=== PATIENT | male | born 1980 | race Caucasian/White ===

== ENCOUNTER 2020-09-02 21:04 | Emergency (ER) | payer OTHER, SELFPAY ==
[2020-09-02] VITALS (24 sets, daily range): BP systolic 181–206; BP diastolic 119–144; PULSE 84–94; RESP 18; TEMP 36.8; O2SAT 91–99; BMI 37.3
--- NOTE | 2020-09-02 21:23 | US_ITS ---
WS: [id number] SCROTAL ULTRASOUND EXAMINATION CLINICAL INFORMATION: Pain COMPARISON: None. FINDINGS: TESTES Normal in size and echotexture, without focal lesion. Color Doppler: Normal color Doppler flow pattern. Right testes size: 3.8 cm x 2.9 cm x 2.7 cm. Left testes size: 5.0 cm x cm x cm. EPIDIDYMIDES Normal in size and echotexture, without focal lesion. Color Doppler: Normal color Doppler flow pattern. Right epididymis size: 1.3 cm x cm x cm. Left epididymitis size: 1.3 cm x cm x cm. HYDROCELE None. VARICOCELE Large bilateral varicoceles. Right varicocele measures 3.6 x 1.6 cm. Left varicocele measuring 3.1 x 1.0 CM. OTHER FINDINGS None. US/US scrotum [id number] IMPRESSION: 1. Large bilateral varicoceles. 2. Testicles are normal in appearance with normal vascularity.
--- NOTE | 2020-09-02 21:28 | ED_ITS ---
HPI - Abdominal Pain General: Chief Complaint: Abdominal Pain Stated Complaint: ABD PAIN, NAUSEA Time Seen by Provider: 09/02/20 21:16 Source: patient Mode of arrival: ambulatory Limitations: no limitations History of Present Illness: HPI narrative: Mr. Sanon is a very nice 40-year-old male who comes in complaining of abdominal pain. He states the symptoms have been going on for 2 days. He states he had similar pain in the past although not quite like he is having today. Previously when he had the pain it was caused by a ruptured diverticulum. Patient still has a colostomy bag in place. Patient denies any vomiting but has been nauseated. He has noticed decreased ostomy output but he states this is because he is not eating or drinking anything. He denies fevers or chills. He denies any urinary symptoms such as frequency, urgency or dysuria. Patient does state he has testicles both ache and this is the radiation of the pain from his abdomen. He denies any exacerbating or alleviating factors. Denies any blood in his ostomy. Associated Symptoms: Reports diarrhea; Denies chills, coffee ground emesis, constipation, GI cramping, dysuria, fever(s), heartburn, hematochezia, hematuria, hematemesis, melena, nausea, syncope and vomiting Review of Systems Const: Denies: fever(s), chills, body aches, fatigue, malaise or diaphoresis Eyes: Denies: change in vision, blurry vision, photophobia, eye discomfort, eye discharge, eye redness or yellow eyes ENMT: Denies: throat pain, odynophagia, hoarseness, swelling of lips/tongue, ear or mastoid pain, ear discharge, change in hearing or nasal discharge Card: Denies: chest pain, palpitations, irregular heart rhythm, edema, lightheadedness, syncope, pre-syncope, dyspnea on exertion or orthopnea Resp: Denies: dyspnea, productive cough, non-productive cough, wheezing, hemoptysis or chest congestion GI: Reports: abdominal pain and diarrhea; Denies: nausea, vomiting, hematemesis, coffee ground emesis, heartburn, constipation, GI cramping, hematochezia or melena : Denies: flank pain, dysuria, urinary frequency, urinary urgency or hematuria Musc: Denies: neck pain, back pain, extremity pain, extremity swelling, joint pain, joint swelling, joint redness, joint warmth or joint stiffness Skin/Breast: Denies: rash, pruritus, erythema, skin pain or skin tenderness Neuro: Denies: headache(s), numbness in extremities, weakness in extremities, sensory changes, lack of coordination, difficulty walking, dizziness, vertigo, confusion, Slurred speech present or seizure-like activity Flo/Lymph: Denies: easy bruising, easy bleeding, petechiae, purpura or enlarged lymph nodes All/Imm: Denies: urticaria, throat swelling, tongue swelling, facial swelling or acute wheezing PFSH ED PFSH: Medical History (Updated 09/03/20 @ 00:27 by Lidia Cody) Colostomy hernia Colostomy in place Hypertension Social History (Updated 11/11/19 @ 14:54 by Fabio Phillips LPN) Smoking and tobacco status: never smoked Alcohol intake: never Physical Exam Const: COMMON NORMALS: no acute distress, patient oriented x3, no limitations and alert GENERAL APPEARANCE: cooperative HENMT: COMMON NORMALS: normocephalic, atraumatic, external ears normal, EAC's normal and Normal external nose present HEAD & SCALP: normal to inspection, normocephalic and atraumatic FACE & SINUS: normal facial exam and face symmetric NOSE: Normal external nose present and Normal nares present EXTERNAL EAR: Yes external ears normal EXTERNAL AUDITORY CANAL: EAC's normal MOUTH: Normal oral and palatal mucosa present, lip normal and tongue normal Eye: COMMON NORMALS: Equal, round and reactive pupils present and conjunctivae normal GENERAL EYE: appearance normal, both eyes and all related structures ALIGNMENT: Yes alignment normal PERIORBITAL: periorbital findings normal EYELID: eyelids normal CONJUNCTIVA: Yes conjunctivae normal SCLERA: sclerae normal PUPIL: Yes Equal, round and reactive pupils present Neck/C-Spine: COMMON NORMALS: full ROM, no lymphadenopathy, supple, no men ingeal signs and no JVD GENERAL: Yes normal visual inspection and Yes trachea midline Chest: COMMONS NORMALS: normal inspection of the chest and normal palpation of entire chest wall Resp: COMMON NORMALS: normal respiratory effort, No retractions, No use of accessory muscles and clear to auscultation bilaterally EFFORT & INSPECTION: Yes able to speak in complete sentences and Yes symmetric chest movement AUSCULTATION: clear to auscultation bilaterally, no crackles, no rales, no rhonchi and no wheezes Cardio: COMMON NORMALS: no JVD, regular rate, regular rhythm, S1 normal heart sound present and S2 normal heart sound present RATE: regular rate RHYTHM: regular rhythm HEART SOUNDS: S1 normal heart sound present, S2 normal heart sound present, no click, no gallops, no murmurs and no rubs GI: COMMON NORMALS: Soft to palpation and No hepatosplenomegaly present PALPATION: Yes Soft to palpation, Yes Tenderness to palpation present (GI) (Moderate diffusely.), No Guarding due to palpation present (GI), No Rigid due to palpation, Yes No hepatosplenomegaly present, Yes Hernia present (Large throughout the abdomen and surrounding colostomy site), No Palpable mass present and No Pulsatile mass present : COMMON NORMALS: Yes no CVA tenderness BLADDER/KIDNEY EXAM: Yes no CVA tenderness Back/Pelvis: COMMON NORMALS: no CVA tenderness, thoracic and lumbar spine normal to inspection, no thoracic nor lumbar tenderness and thoraco-lumbar ROM normal Extremity: COMMON NORMALS: normal to inspection, full ROM, capillary refill normal, no joint enlargement, no clubbing, cyanosis or edema and no calf tenderness Neuro: COMMON NORMALS: patient oriented x3, CN's II-XII intact bilaterally, moves all extremities, no focal motor deficits and no sensory deficits noted SENSORIUM/ORIENTATION: Yes alert MENINGEAL SIGNS: Yes no meningeal signs SPEECH: speech normal Psych: COMMON NORMALS: mental status grossly normal, Normal thought process present, cooperative, normal affect, speech normal and activity/motor behavior normal SPEECH: Yes normal speech THOUGHT PROCESS: Normal thought process present Skin: COMMON NORMALS: no rashes or lesions noted, turgor normal, no jaundice, no petechiae and no mottling GENERAL SKIN EXAM: no rashes or lesions noted and turgor normal Course Vital Signs: Vital signs: Vital Signs Temperature 98.2 F 09/02/20 21:09 Pulse Rate 63 09/03/20 00:37 Respiratory Rate 18 09/03/20 00:37 Blood Pressure 158/92 09/03/20 00:37 Pulse Oximetry 94 09/03/20 00:37 MDM - Abdominal Pain MDM Narrative: Medical decision making narrative: Mr. Tang is a very nice 40-year-old male who comes in with a 2-day history of intermittent abdominal pain. His abdominal pain is more around his umbilicus and his ostomy site. CT scan though shows no evidence of acute diverticulitis, bowel obstruction or any other acute inflammatory or obstructive pathology. Patient states he has had an appendectomy. The patient has not been vomiting and he is pain is improved here. On exam his pain is not out of proportion to exam although he has mild diffuse pain. CT scan showed a stone in the neck of the gallbladder but his liver enzymes are normal and he has no focal tenderness in the right upper quadrant. Patient states his ostomy has been putting out as he would expect for his decreased fluid intake. At this time I see no acute surgical emergency and on exam there is no sign of peritonitis. I replaced the patient's potassium by mouth and he was pain-free when he left here. He was hydrated here as well and was no longer nauseated. I gave him a prescription of Bentyl for his cramping abdominal pain and Zofran for nausea at home. I did have a lengthy discussion with him about the possibility of this being something early in regards to his abdomen and then if his pain recurred or even if his dull pain recurred but was not severe if it did not completely subside within the next 8 to 12 hours he would need to return here for recheck. He states he understood this this and he states that he is tired of dealing with the pain so if it does return and is more severe he will return immediately or if it comes back and is mild he will still come back for recheck in the time that we discussed. This time I see no acute emergency but again the patient understands if he worsens at all he will need to return. He had no questions or concerns and he agreed to this treatment and follow-up plan. Differential Diagnosis: Differential diagnosis abdominal pain: Likely abdominal pain, acute appendicitis, calculus of kidney, constipation, diverticulitis, gastroenteritis, pancreatitis and small bowel obstruction Medical Records: Attestation: I reviewed the patient's medical records. Lab Data: Attestation: I reviewed the patient's lab results. Labs: Lab Results 09/02/20 09/02/20 09/02/20 Range/Units 21:29 21:29 21:29 WBC 9.9 (4.0-10.0) 10^3/ uL RBC 5.78 H (4.1-5.3) 10^6/u L Hgb 16.8 H (11.7-16.6) g/dL Hct 50.6 (42.0-52.0) % MCV 87.5 (80-94) fL MCH 29.1 (28.0-34.0) pg MCHC 33.2 (30.0-36.0) g/dL RDW 12.9 (12.1-15.1) % Plt Count 264 (130-400) 10^3/c mm MPV 10.7 H (7.4-10.4) fL Neut % (Auto) 61.1 % Lymph % (Auto) 28.9 % [place] % (Auto) 8.0 % Eos % (Auto) 1.3 % Baso % (Auto) 0.5 % Neut # (Auto) 6.07 (1.8-7.7) 10^3/u L Lymph # (Auto) 2.9 (0.8-4.8) 10^3/u L [place] # (Auto) 0.8 (0.2-0.9) 10^3/u L Eos # (Auto) 0.1 (0.0-0.8) 10^3/u L Baso # (Auto) 0.1 (0.0-0.1) 10^3/u L Nucleated RBC % (a uto) 0 % Nucleated RBCs # 0.0 /100WBC Sodium 140 (136-145) mmol/L Potassium 3.3 L (3.5-5.1) mmol/L Chloride 102 (98-107) mmol/L Carbon Dioxide 27 (22-29) mmol/L Anion Gap 14.3 (5-19) BUN 17 (6-20) mg/dL Creatinine 1.0 (0.7-1.2) mg/dL GFR Calculation 81.9 L (90-130) mL/min Glucose 142 H (65-115) mg/dL Calculated Osmolal ity 294 (285-295) mOsm/k g Lactic Acid 1.4 (0.5-2.2) mmol/L Calcium 9.2 (8.5-10.5) mg/dL Total Bilirubin 0.5 (0.15-1.2) mg/dL AST 22 (0-40) U/L ALT 14 (0-41) U/L Alkaline Phosphata se 77 (40-130) IU/L Total Protein 7.6 (6.6-8.7) g/dL Albumin 4.1 (3.5-5.2) g/dL Globulin 3.5 (1.3-4.6) g/dL Lipase 32 (13-60) U/L Urine Color (Yellow) Urine Appearance (CLEAR) Urine pH (5-7) Ur Specific Gravit y (1.005-1.030) Urine Protein (Negative) Urine Glucose (UA) (Normal) Urine Ketones (Negative) Urine Blood (Negative) Urine Nitrate (Negative) Urine Bilirubin (Negative) Urine Urobilinogen (Negative) mg/dL Ur Leukocyte Mayte ase (Negative) 09/02/20 Range/Units 22:46 WBC (4.0-10.0) 10^3/ uL RBC (4.1-5.3) 10^6/u L Hgb (11.7-16.6) g/dL Hct (42.0-52.0) % MCV (80-94) fL MCH (28.0-34.0) pg MCHC (30.0-36.0) g/dL RDW (12.1-15.1) % Plt Count (130-400) 10^3/c mm MPV (7.4-10.4) fL Neut % (Auto) % Lymph % (Auto) % Columbia % (Auto) % Eos % (Auto) % Baso % (Auto) % Neut # (Auto) (1.8-7.7) 10^3/u L Lymph # (Auto) (0.8-4.8) 10^3/u L [place] # (Auto) (0.2-0.9) 10^3/u L Eos # (Auto) (0.0-0.8) 10^3/u L Baso # (Auto) (0.0-0.1) 10^3/u L Nucleated RBC % (a uto) % Nucleated RBCs # /100WBC Sodium (136-145) mmol/L Potassium (3.5-5.1) mmol/L Chloride (98-107) mmol/L Carbon Dioxide (22-29) mmol/L Anion Gap (5-19) BUN (6-20) mg/dL Creatinine (0.7-1.2) mg/dL GFR Calculation (90-130) mL/min Glucose (65-115) mg/dL Calculated Osmolal ity (285-295) mOsm/k g Lactic Acid (0.5-2.2) mmol/L Calcium (8.5-10.5) mg/dL Total Bilirubin (0.15-1.2) mg/dL AST (0-40) U/L ALT (0-41) U/L Alkaline Phosphata se (40-130) IU/L Total Protein (6.6-8.7) g/dL Albumin (3.5-5.2) g/dL Globulin (1.3-4.6) g/dL Lipase (13-60) U/L Urine Color Yellow (Yellow) Urine Appearance Clear (CLEAR) Urine pH 5.0 (5-7) Ur Specific Gravit y 1.020 (1.005-1.030) Urine Protein Neg (Negative) Urine Glucose (UA) Norm (Normal) Urine Ketones Negative (Negative) Urine Blood Neg (Negative) Urine Nitrate Negative (Negative) Urine Bilirubin Neg (Negative) Urine Urobilinogen Norm (Negative) mg/dL Ur Leukocyte Mayte ase Negative (Negative) Imaging Data ^: US: My impression: Ultrasound scrotum and contents, tech interpretation -bilateral varicoceles present. No other acute findings. CT Abd/Pel: Radiologist's impression: [address] [address] [address] Scan Report Signed Patient: Nav Sanon Unit #: [id number] : 1980 Age/Sex: 40 / M ADM Date: 09/02/20 Loc: ER Room/Bed: Attending Dr: Ordering Provider/Ordering MD: Lidia Cody DO Date of Service: 09/02/20 Procedure(s): CT abdomen pelvis w con* [id number] Accession Number(s): [id number] Report Number: [id number] PROCEDURE INFORMATION: Exam: CT Abdomen And Pelvis With Contrast Exam date and time: 09/02/2020 10:08 PM Age: 40 years old Clinical indication: Abdominal pain; Generalized; Prior surgery; Surgery type: Colostomy TECHNIQUE: Imaging protocol: Computed tomography of the abdomen and pelvis with intravenous contrast. Radiation optimization: All CT scans at this facility use at least one of these dose optimization techniques: automated exposure control; mA and/or kV adjustment per patient size (includes targeted exams where dose is matched to clinical indication); or iterative reconstruction. Contrast material: OMNI 300; Contrast volume: 95 ml; Contrast route: INTRAVENOUS (IV); COMPARISON: CT abdomen pelvis w con* [id number] 02/08/2015 11:03 AM RADIATION DOSE METRICS: Total DLP (mGy-cm): 1493.06 FINDINGS: Liver: Unremarkable. Gallbladder and bile ducts: Small gallstone in the gallbladder neck. Pancreas: Unremarkable. Spleen: Unremarkable. Adrenal glands: Unremarkable. Kidneys and ureters: There is a 0.8 cm hypodensity in the right kidney lower pole on series 2, image 43, statistically likely to represent a cyst. There is a 1.5 cm mass in the right kidney lower pole on series 2, image 50. Density is 36 Hounsfield units. Etiology is indeterminate. The left kidney is unremarkable. Stomach and bowel: No bowel obstruction identified. No diverticulitis identified. Left lower quadrant colostomy noted. Appendix: The appendix is not definitively identified as a separate structure. Intraperitoneal space: No free intraperitoneal air or fluid identified. Massive ventral abdominal hernia, which contains fat, a long segment of the small bowel, and a long segment of the colon. Vasculature: No abdominal aortic aneurysm. Lymph nodes: Unremarkable. Urinary bladder: Unremarkable as visualized. Reproductive: Unremarkable as visualized. Bones/joints: Minimal degenerative changes of the lower thoracic spine and the lumbar spine. Soft tissues: Unremarkable. CT/CT abdomen pelvis w con* [id number] IMPRESSION: 1. Massive ventral abdominal hernia, which contains fat, a long segment of the small bowel, and a long segment of the colon. 2. Small gallstone in the gallbladder neck. 3. There is a 1.5 cm mass in the right kidney lower pole. Density is 36 Hounsfield units. Etiology is indeterminate. This finding is new since the prior study. Consider renal mass protocol CT on a nonemergent basis for further evaluation. COMMENTS: Consistent with the [employer]'s Incidental Findings Committee white paper (J Am Barb Radiol 2018): Any incidental renal lesion less than 1 cm or classified as too small to characterize, or any incidental cystic renal lesion characterized as simple-appearing, is likely benign. No follow-up imaging is recommended for these lesions per consensus recommendations based on imaging criteria. Radiation Dose CTDIVOL = (mGy): DLP = 1493.06 (mGy-cm) Dictated By: Modesto Watkins MD Signed By: Modesto Watkins MD Signed Date/Time: 09/03/20 0008 DD/ 0005 Discharge Plan Discharge Patient Disposition: Home Clinical Impression: Abdominal pain Qualifiers: Abdominal location: generalized Qualified Code(s): R10.84 - Generalized abdominal pain Condition: Stable Prescriptions: New Zofran 4 mg tablet 4 mg PO Q6H PRN (Reason: nausea and vomiting) Qty: 20 RF: 0 dicyclomine 20 mg tablet 20 mg PO QID 5 Days Qty: 20 RF: 0 No Action Imodium A-D 2 mg Tablet 2 mg PO BID@ RF: 0 Discharge Orders: Discharge ED (Routine); Ordered 09/03/20 Ordered By: Lidia Cody Referrals: Julius Allen MD [Physician] - 1-3 days Ze Neumann MD [Primary Care Provider] - 1-3 days Discharge Diet: Advance as tolerated and Clear Liquid Discharge Activity: Increase activity as tolerated Patient Instructions: Clear Liquid Diet (ED), Acute Abdominal Pain (ED), Abdominal Pain (ED) Activity Restrictions/Additional Instructions: Please return to the ER immediately for any of the signs or symptoms listed on your discharge instruction sheets, worsening/changing of your symptoms, you are not getting better as quickly as expected, or for ANY other cause or concerns. Take the medicines have given you for the cramping abdominal pain and nausea as needed. Return to the ER immediately for fever, vomiting, you stop having output through your ostomy, return of your abdominal pain, your abdominal pain is not completely gone in the next 8 to 12 hours, or for any other cause for concern. Be certain to follow-up with a clear liquid diet and advance it as we discussed only as your pain completely subsides. You have been offered further evaluation including observation in the hospital by a surgeon but have declined. Your abdominal pain could be a sign of something early even severe and life- threatening so if your symptoms return or change in any way please return here to the ER immediately for recheck. Coding Level of Care Code ED Knowledge Management Consultant for Chg Fwd Exam Comprehensive
[2020-09-02] MEDS: ondansetron 2 mg/ML SDV 2 mL 4 MG IVP (21:36)
[2020-09-02 21:37] LABS: Basophils # 0.1 10^3/uL (0.0-0.1); Basophils % 0.5 %; Eosinophils # 0.1 10^3/uL (0.0-0.8); Eosinophils % 1.3 %; Hematocrit 50.6 % (42.0-52.0); Hemoglobin 16.8 g/dL (11.7-16.6); Lymphocytes # 2.9 10^3/uL (0.8-4.8); Lymphocytes % 28.9 %; Mean Corpuscular HGB Conc 33.2 g/dL (30.0-36.0); Mean Corpuscular Hemoglobin 29.1 pg (28.0-34.0); Mean Corpuscular Volume 87.5 fL (80-94); Mean Platelet Volume 10.7 fL (7.4-10.4); Monocytes # 0.8 10^3/uL (0.2-0.9); Neutrophils # 6.07 10^3/uL (1.8-7.7); Neutrophils % 61.1 %; Nucleated Red Blood Cells % 0 %; Platelet Count 264 10^3/cmm (130-400); Red Blood Count 5.78 10^6/uL (4.1-5.3); Red Cell Distribution Width 12.9 % (12.1-15.1); White Blood Count 9.9 10^3/uL (4.0-10.0)
[2020-09-02] MEDS: HYDROmorphone 1 mg/mL INJ 1 mL IVP (21:39)
[2020-09-02 21:54] LABS: Alanine Aminotransferase 14 U/L (0-41); Albumin Level 4.1 g/dL (3.5-5.2); Alkaline Phosphatase 77 IU/L (40-130); Anion Gap 14.3 (5-19); Aspartate Amino Transferase 22 U/L (0-40); Blood Urea Nitrogen 17 mg/dL (6-20); Calcium 9.2 mg/dL (8.5-10.5); Carbon Dioxide 27 mmol/L (22-29); Chloride 102 mmol/L (98-107); Globulin 3.5 g/dL (1.3-4.6); Glomerular Filtration Rate 81.9 mL/min (90-130); Glucose 142 mg/dL (65-115); Lipase 32 U/L (13-60); Osmolality Calculated 294 mOsm/kg (285-295); Potassium 3.3 mmol/L (3.5-5.1); Sodium 140 mmol/L (136-145); Total Bilirubin 0.5 mg/dL (0.15-1.2); Total Protein 7.6 g/dL (6.6-8.7)
[2020-09-02 21:55] LABS: Lactic Sepsis W/Reflex 1.4 mmol/L (0.5-2.2)
--- NOTE | 2020-09-02 21:56 | CTR_ITS ---
PROCEDURE INFORMATION: Exam: CT Abdomen And Pelvis With Contrast Exam date and time: 09/02/2020 10:08 PM Age: 40 years old Clinical indication: Abdominal pain; Generalized; Prior surgery; Surgery type: Colostomy TECHNIQUE: Imaging protocol: Computed tomography of the abdomen and pelvis with intravenous contrast. Radiation optimization: All CT scans at this facility use at least one of these dose optimization techniques: automated exposure control; mA and/or kV adjustment per patient size (includes targeted exams where dose is matched to clinical indication); or iterative reconstruction. Contrast material: OMNI 300; Contrast volume: 95 ml; Contrast route: INTRAVENOUS (IV); COMPARISON: CT abdomen pelvis w con* [id number] 02/08/2015 11:03 AM RADIATION DOSE METRICS: Total DLP (mGy-cm): 1493.06 FINDINGS: Liver: Unremarkable. Gallbladder and bile ducts: Small gallstone in the gallbladder neck. Pancreas: Unremarkable. Spleen: Unremarkable. Adrenal glands: Unremarkable. Kidneys and ureters: There is a 0.8 cm hypodensity in the right kidney lower pole on series 2, image 43, statistically likely to represent a cyst. There is a 1.5 cm mass in the right kidney lower pole on series 2, image 50. Density is 36 Hounsfield units. Etiology is indeterminate. The left kidney is unremarkable. Stomach and bowel: No bowel obstruction identified. No diverticulitis identified. Left lower quadrant colostomy noted. Appendix: The appendix is not definitively identified as a separate structure. Intraperitoneal space: No free intraperitoneal air or fluid identified. Massive ventral abdominal hernia, which contains fat, a long segment of the small bowel, and a long segment of the colon. Vasculature: No abdominal aortic aneurysm. Lymph nodes: Unremarkable. Urinary bladder: Unremarkable as visualized. Reproductive: Unremarkable as visualized. Bones/joints: Minimal degenerative changes of the lower thoracic spine and the lumbar spine. Soft tissues: Unremarkable. CT/CT abdomen pelvis w con* [id number] IMPRESSION: 1. Massive ventral abdominal hernia, which contains fat, a long segment of the small bowel, and a long segment of the colon. 2. Small gallstone in the gallbladder neck. 3. There is a 1.5 cm mass in the right kidney lower pole. Density is 36 Hounsfield units. Etiology is indeterminate. This finding is new since the prior study. Consider renal mass protocol CT on a nonemergent basis for further evaluation. COMMENTS: Consistent with the [employer]'s Incidental Findings Committee white paper (J Am Barb Radiol 2018): Any incidental renal lesion less than 1 cm or classified as too small to characterize, or any incidental cystic renal lesion characterized as simple-appearing, is likely benign. No follow-up imaging is recommended for these lesions per consensus recommendations based on imaging criteria. Radiation Dose CTDIVOL = (mGy): DLP = 1493.06 (mGy-cm)
[2020-09-02 22:51] LABS: Add Urine Microscopic? NO
[2020-09-02 22:55] LABS: Urine Color Yellow (Yellow)
[2020-09-02 22:56] LABS: Bilirubin Urine Neg (Negative); Blood Urine Neg (Negative); Glucose Urine UA Norm (Normal); Ketones Urine Negative (Negative); Leukocyte Esterase Urine Negative (Negative); Nitrate Urine Negative (Negative); Protein Urine Neg (Negative); Urine Appearance Clear (CLEAR); Urobilinogen Urine Norm (Negative)
[2020-09-02] MEDS: iohexol 300 mg/mL 100 mL Btl IV (23:39)
--- NOTE | 2020-09-02 23:48 | PC.NURSE ---
Pt return from CT
[2020-09-03] VITALS (7 sets, daily range): BP systolic 158–181; BP diastolic 92–119; PULSE 63–70; RESP 18–20; O2SAT 93–94
[2020-09-03] MEDS: HYDROmorphone 1 mg/mL INJ 1 mL IVP (00:33)
[2020-09-03] MEDS: potassium chloride oral liq 20 mEq/15 mL UDC 40 MEQ PO (00:36)
--- NOTE | 2020-09-03 09:30 | DCPLANNER ---
[employer] manager had message to schedule a follow up appointment for patient with ortho. [employer] cryptologic manager called the ortho clinic, spoke with Katarzyna, gave clinic patients information. [employer] cryptologic manager was told that patients information would be printed and reviewed. Clinic will call patient with appointment information.
--- NOTE | 2020-09-10 10:48 | DCPLANNER ---
Patient has a follow up appointment scheduled for August at 10:[address] Frederick. Clinic will call patient with appointment information.
--- NOTE | 2020-09-15 11:00 | DCPLANNER ---
Patient had a follow up appointment scheduled for 09.16.[address] Louis office - patient cancelled appointment.
== END 2020-09-03 00:47 | disposition home or self-care (01) ==
PROVIDERS: Emergency Provider Emergency Medicine; PCP Family Medicine
DX: R10.84 Generalized abdominal pain (principal); I10 Essential (primary) hypertension; Z93.3 Colostomy status
CPT/HCPCS: 12345; 74177; 76870; 80053; 81003; 83605; 83690; 85025; 96374; 96375; 96376; 99283; J1170; J2405; Q9967

== ENCOUNTER → 2020-09-19 10:53 | Outpatient (BNVA) | payer OTHER, SELFPAY | PROVIDERS: PCP Family Medicine; Visit Provider Nurse Practitioner | DX: M19.072 Primary osteoarthritis, left ankle and foot (principal); M79.672 Pain in left foot | CPT/HCPCS: 73630 ==

== ENCOUNTER 2021-06-29 11:28 | Outpatient (CLI) | payer OTHER, SELFPAY | END 2021-06-29 11:29 | disposition home or self-care (01) | PROVIDERS: PCP Family Medicine; Visit Provider Family Medicine | DX: K92.1 Melena (principal) | CPT/HCPCS: 83993; 87493; 87506 ==

== ENCOUNTER 2022-03-17 06:35 | Observation (INO) | payer OTHER, SELFPAY ==
[2022-03-17 07:11] VITALS: BP 199/144; PULSE 73; TEMP 36.6; O2SAT 98; BMI 38.7
--- NOTE | 2022-03-17 08:06 | CT_ITS ---
WS: [id number] CT ABDOMEN AND PELVIS WITH CONTRAST HISTORY: abd pain TECHNIQUE: Imaging performed of the abdomen and pelvis with IV contrast. Single phase imaging of the abdomen. Coronal and sagittal reformats are submitted. All CT scans at [facility] use at ke st one of these dose optimization techniques: automated exposure control; mA and/or kV adjustment per patient size (includes targeted exams where dose is matched to clinical indication); or iterative re construction. IV CONTRAST: Omnipaque 350; 75 mL IV. Oral contrast: No DLP: 1930.05 mGy.cm COMPARISON: 09/02/2020 Lower thorax: Lung bases are clear. Heart is normal size. No hiatal hernia. Liver/biliary system: Normal size with no intrahepatic dilatation. Gallbladder: Normally distended gallbladder with cholelithiasis. Pancreas: Normal size pancreas and pancreatic duct. No adjacent inflammation. Spleen: Normal size spleen. No mass or infarct. Adrenal glands: Normal. Right kidney: Normal size kidney. There is a small enhancing mass from the lower pole of the RIGHT ki dney now measuring 13 mm as compared to 8 mm on the prior study. On the prior study this was thought to be a renal cyst. On today's examination this is not a simple cyst. This will need follow-up to exc lude neoplasm. Left kidney: Normal. Aorta: Normal. Lymphadenopathy: No enlarged lymph nodes. Free fluid: None. GI tract: Normally distended stomach. RIGHT lower quadrant colostomy. There is a very large parastoma l hernia. Ventral abdominal wall hernia contains small bowel and colon. Orifice of the hernia is grea ter than 11 cm. Very similar appearance to the prior examination. No obstruction is evident within th e hernia sac. Abdominal wall: Large ventral abdominal wall parastomal hernia. Pelvis: No free fluid or adenopathy. Urinary bladder is well distended. Bones: Scoliosis. No lytic lesions. CT/CT abdomen pelvis w con* [id number] IMPRESSION: 1. Status post RIGHT lower quadrant colostomy with a large parastomal hernia. Large parastomal hernia has been previously described and contains both small b owel and colon. There is no obstructive pattern. 2. No ascites or adenopathy. 3. Cholelithiasis without acute cholecystitis.
--- NOTE | 2022-03-17 08:06 | W.ED.ABDPA2 ---
HPI - Abdominal Pain General: Chief Complaint: Headache Stated Complaint: Head Pain / Stomach pain Time Seen by Provider: 03/17/22 07:02 Source: patient Mode of arrival: ambulatory Limitations: no limitations History of Present Illness: 41-year-old male who presents emergency room with headache and abdominal pain for the last 5 days. Patient reports previously having had a perforation of his bowel resulting in a colostomy otherwise not sure of the exact cause of the bowel perforation drip. He has had copious diarrhea through his colostomy for the last 5 days with intermittent abdominal cramping associated with it. He denies any hematochezia or melanic stools. He gets very nauseous but has not had any vomiting. He also has had a severe headache although does not correlate with episodes of diarrhea. MD elicited complaint: abdominal pain and other (Persistent diarrhea) Onset (ago): day(s) (5) Location: [facility] Severity: moderate Quality: cramping Radiation: none Migration to: no migration Exacerbating factors: nothing Relieving factors: nothing Associated Symptoms: Reports bloating, change in bowel habits, change in stool character, GI cramping, diarrhea, nausea and poor appetite; Denies anorexia, belching, chills, coffee ground emesis, constipation, dyspepsia, dysuria, excessive flatus, fever(s), heartburn, hematochezia, hematuria, hematemesis, fecal incontinence, loose stools, melena, syncope and vomiting Review of Systems Const: Reports: fatigue and malaise; Denies: fever(s) or chills Eyes: Reports: change in vision and blurry vision ENMT: Denies: throat pain, ear or mastoid pain, nasal discharge or nasal congestion Card: Denies: chest pain, palpitations, irregular heart rhythm, edema, swelling of feet/ankles or syncope Resp: Denies: dyspnea, productive cough or non-productive cough GI: Reports: nausea, diarrhea, bloating, GI cramping, change in bowel habits and change in stool character; Denies: vomiting, hematemesis, coffee ground emesis, heartburn, constipation, belching, excessive flatus, fecal incontinence, hematochezia or melena : Denies: flank pain, difficulty urinating, dysuria, urinary frequency, urinary urgency or hematuria Skin/Breast: Denies: rash or pruritus PFSH ED PFSH: Medical History Colostomy hernia Colostomy in place Hypertension Social History Smoking and tobacco status: never smoked Second hand smoke exposure: No Alcohol intake: never Desire information about alcohol rehabilitation?: No Desire information about substance/drug rehabilitation?: No Physical Exam Const: GENERAL APPEARANCE: cooperative and comfortable ORIENTATION/CONSCIOUSNESS: Yes awake, Yes oriented to person, Yes oriented to place and Yes oriented to time HENMT: COMMON NORMALS: normocephalic and atraumatic HEAD & SCALP: normocephalic and atraumatic Neck/C-Spine: COMMON NORMALS: no JVD Resp: COMMON NORMALS: normal respiratory effort, No retractions, No use of accessory muscles and clear to auscultation bilaterally AUSCULTATION: clear to auscultation bilaterally Cardio: COMMON NORMALS: no JVD, regular rate, regular rhythm and No murmurs present (Cardio) RATE: regular rate RHYTHM: regular rhythm GI: COMMON NORMALS: No hepatosplenomegaly present AUSCULTATION: Yes normoactive bowel sounds PALPATION: Yes Tenderness to palpation present (GI) Details: LLQ, No Guarding due to palpation present (GI) and Yes No hepatosplenomegaly present OTHER: Mild discomfort left lower quadrant hypoactive but present bowel sounds. There is some bulging and appears to be a herniation through the ostomy site in the left lower quadrant. It is rather diffuse on exam. It is not tense, no peritoneal signs. Extremity: COMMON NORMALS: normal to inspection, capillary refill normal, no clubbing, cyanosis or edema, no calf tenderness and no pedal edema Neuro: SENSORIUM/ORIENTATION: Yes oriented to person, Yes oriented to place and Yes oriented to time Skin: COMMON NORMALS: no rashes or lesions noted GENERAL SKIN EXAM: no rashes or lesions noted Course Vital Signs: Vital signs: Vital Signs Temperature 97.8 F 03/17/22 07:11 Pulse Rate 92 03/17/22 12:08 Respiratory Rate 16 03/17/22 12:08 Blood Pressure 147/89 03/17/22 12:08 Pulse Oximetry 96 03/17/22 12:08 MDM - Abdominal Pain Medical Decision Making During the course of the visit and came of that patient was having suicidal ideation he answered no to his initial craning's questions but then began to express suicidal ideation. When I went back to the room and talk to him about he did admit he was having suicidal thoughts at times is frustrated with the problems he had with his colostomy. He even admits his at times is wanted him to get started on medications but he is always declined up till now. He has not formed a specific specific plan. I did talk to him his affect is very flat he will admit that he has a suicidal thoughts but is difficult to get him to engage. Very concerned that he may actually present a harm to himself. When I expressed this to him he did not disagree but he wants to go home. I Dr. Vega centimeters he had the same assessment and thought the patient was at very high risk after further discussion the patient and his via speaker phone patient agrees to stay will admit to neuropsych. He did have some elevated blood pressures when he first tried we will start him on amlodipine 5 mg daily. His diarrhea issues are new intermittent chronic problem we have done stool studies to further evaluate but I suspect this is just part of his chronic abdomen flow of his bowel issues probably worsened in part by his psychological stressors. Medical Records I reviewed the patient's medical records. Lab Data I reviewed the patient's lab results. : 03/17/22 08:06 03/17/22 08:06 Labs/Radiology: Radiology Impressions Abdomen/Pelvis CT 03/17/22 08:06 IMPRESSION: 1. Status post RIGHT lower quadrant colostomy with a large parastomal hernia. Large parastomal hernia has been previously described and contains both small bowel and colon. There is no obstructive pattern. 2. No ascites or adenopathy. 3. Cholelithiasis without acute cholecystitis. Head CT 03/17/22 08:09 Impression: Negative CT scan of the head Laboratory Results WBC 7.5 10^3/uL (4.0-10.0) 03/17/22 08:06 RBC 5.66 10^6/uL (4.1-5.3) H 03/17/22 08:06 Hgb 16.8 g/dL (11.7-16.6) H 03/17/22 08:06 Hct 48.2 % (42.0-52.0) 03/17/22 08:06 MCV 85.2 fl (80-94) 03/17/22 08:06 MCH 29.7 pg (28.0-34.0) 03/17/22 08:06 MCHC 34.9 g/dL (30.0-36.0) 03/17/22 08:06 RDW 12.6 % (12.1-15.1) 03/17/22 08:06 Plt Count 235 10^3/cmm (130-400) 03/17/22 08:06 MPV 10.7 fL (7.4-10.4) H 03/17/22 08:06 Neut % (Auto) 61.1 % 03/17/22 08:06 Lymph % (Auto) 27.9 % 03/17/22 08:06 Stephens % (Auto) 8.5 % 03/17/22 08:06 Eos % (Auto) 1.7 % 03/17/22 08:06 Baso % (Auto) 0.5 % 03/17/22 08:06 Neut # (Auto) 4.60 10^3/uL (1.8-7.7) 03/17/22 08:06 Lymph # (Auto) 2.1 10^3/uL (0.8-4.8) 03/17/22 08:06 Stephens # (Auto) 0.6 10^3/uL (0.2-0.9) 03/17/22 08:06 Eos # (Auto) 0.1 10^3/uL (0.0-0.8) 03/17/22 08:06 Baso # (Auto) 0.0 10^3/uL (0.0-0.1) 03/17/22 08:06 Nucleated RBC % (auto) 0 % 03/17/22 08:06 Nucleated RBCs # 0.0 /100WBC 03/17/22 08:06 Sodium 137 mmol/L (136-145) 03/17/22 08:06 Potassium 3.4 mmol/L (3.5-5.1) L 03/17/22 08:06 Chloride 100 mmol/L (98-107) 03/17/22 08:06 Carbon Dioxide 27 mmol/L (22-29) 03/17/22 08:06 Anion Gap 13.4 (5-19) 03/17/22 08:06 BUN 7 mg/dL (6-20) 03/17/22 08:06 Creatinine 0.9 mg/dL (0.7-1.2) 03/17/22 08:06 GFR Calculation 92.1 mL/min (90-130) 03/17/22 08:06 Glucose 99 mg/dL (65-115) 03/17/22 08:06 Calculated Osmolality 282 mOsm/kg (285-295) L 03/17/22 08:06 Calcium 8.9 mg/dL (8.5-10.5) 03/17/22 08:06 Total Bilirubin 0.8 mg/dL (0.15-1.2) 03/17/22 08:06 AST 18 U/L (0-40) 03/17/22 08:06 ALT 13 U/L (0-41) 03/17/22 08:06 Alkaline Phosphatase 66 IU/L (40-130) 03/17/22 08:06 Total Protein 7.8 g/dL (6.6-8.7) 03/17/22 08:06 Albumin 4.1 g/dL (3.5-5.2) 03/17/22 08:06 Globulin 3.7 g/dL (1.3-4.6) 03/17/22 08:06 Urine Color Yellow (Yellow) 03/17/22 09:35 Urine Appearance Clear (CLEAR) 03/17/22 09:35 Urine pH 8 (5-7) H 03/17/22 09:35 Ur Specific Almo 1.010 (1.005-1.030) 03/17/22 09:35 Urine Protein Neg (Negative) 03/17/22 09:35 Urine Glucose (UA) Negative (Normal) 03/17/22 09:35 Urine Ketones Negative (Negative) 03/17/22 09:35 Urine Blood Neg (Negative) 03/17/22 09:35 Urine Nitrate Negative (Negative) 03/17/22 09:35 Urine Bilirubin Neg (Negative) 03/17/22 09:35 Prot Sulfosalicylic Acd Negative (Negative) 03/17/22 09:35 Urine Urobilinogen Norm mg/dL (Negative) 03/17/22 09:35 Ur Leukocyte Esterase Negative (Negative) 03/17/22 09:35 Discharge Plan Discharge Patient Disposition: Admitted As Inpatient Clinical Impression: Suicidal ideation, Colostomy hernia, Hypertension Condition: Stable Coding Level of Care Code ED Military Equipment Specialist for Chg Fwd Exam Comprehensive
--- NOTE | 2022-03-17 08:09 | CT_ITS ---
WS: [id number] CT scan of the head, 03/17/2022 Clinical Data: 5 day headache Comparison: None. DLP: 838.[address] scans at [facility] use at least one of these dose optimization techniques: automated e xposure control; mA and/or kV adjustment per patient size (includes targeted exams where dose is matc hed to clinical indication); or iterative reconstruction. Findings: The ventricular system is normal without shift. No recent infarct or hemorrhage is seen. There are no abnormal intracerebral masses. The cerebellum and brainstem are not remarkable. Bony windows of the skull and skull base show no fractures or erosions. The mastoid air cells, consultant intern al auditory canals, sella turcica, intraorbital contents, and paranasal sinuses are unremarkable. CT/CT head wo con* [id number] Impression: Negative CT scan of the head
[2022-03-17] MEDS: ketorolac 30 mg/mL INJ IVP (08:17)
[2022-03-17] MEDS: sodium chloride 0.9% 1,000 ML 999 ML IV (08:17)
[2022-03-17] MEDS: diphenhydrAMINE 50 mg/mL SDV 1mL IM (08:21)
[2022-03-17 08:33] LABS: Basophils % 0.5 %; Eosinophils # 0.1 10^3/uL (0.0-0.8); Eosinophils % 1.7 %; Hematocrit 48.2 % (42.0-52.0); Hemoglobin 16.8 g/dL (11.7-16.6); Lymphocytes # 2.1 10^3/uL (0.8-4.8); Lymphocytes % 27.9 %; Mean Corpuscular HGB Conc 34.9 g/dL (30.0-36.0); Mean Corpuscular Hemoglobin 29.7 pg (28.0-34.0); Mean Corpuscular Volume 85.2 fl (80-94); Mean Platelet Volume 10.7 fL (7.4-10.4); Monocytes # 0.6 10^3/uL (0.2-0.9); Monocytes % 8.5 %; Neutrophils % 61.1 %; Nucleated Red Blood Cells % 0 %; Platelet Count 235 10^3/cmm (130-400); Red Blood Count 5.66 10^6/uL (4.1-5.3); Red Cell Distribution Width 12.6 % (12.1-15.1); White Blood Count 7.5 10^3/uL (4.0-10.0)
[2022-03-17] MEDS: iohexol 350 mg/mL 100 mL Btl IV (08:36)
[2022-03-17] MEDS: enalaprilat 1.25 mg/mL Inj IVP (08:46)
[2022-03-17] MEDS: hyDRALAzine 20 mg/mL INJ 1 mL IVP (08:46)
--- NOTE | 2022-03-17 09:04 | PC.PHAR ---
pt states he takes no rx or otc medications-pt states he use to take lisinopril 20mg daily filled 09/05/21 12d/s but states he hasnt taken for a long
[2022-03-17 09:11] LABS: Alanine Aminotransferase 13 U/L (0-41); Albumin Level 4.1 g/dL (3.5-5.2); Alkaline Phosphatase 66 IU/L (40-130); Anion Gap 13.4 (5-19); Aspartate Amino Transferase 18 U/L (0-40); Blood Urea Nitrogen 7 mg/dL (6-20); Calcium 8.9 mg/dL (8.5-10.5); Carbon Dioxide 27 mmol/L (22-29); Chloride 100 mmol/L (98-107); Globulin 3.7 g/dL (1.3-4.6); Glomerular Filtration Rate 92.1 mL/min (90-130); Glucose 99 mg/dL (65-115); Osmolality Calculated 282 mOsm/kg (285-295); Potassium 3.4 mmol/L (3.5-5.1); Sodium 137 mmol/L (136-145); Total Bilirubin 0.8 mg/dL (0.15-1.2); Total Protein 7.8 g/dL (6.6-8.7)
[2022-03-17 09:59] LABS: Add Urine Microscopic? NO; Charge for UA Resulting for Rev
--- NOTE | 2022-03-17 10:00 | PC.NURSE ---
NOTIFIED DR. KATZ OF RESULTS OF SUICIDE RISK ASSESSMENT HE VERBALIZED UNDERSTANDING NO FURTHER ORDERS.
[2022-03-17 10:02] LABS: Urine Appearance Clear (CLEAR); Urine Color Yellow (Yellow); pH Urine 8 (5-7)
[2022-03-17 10:03] LABS: Bilirubin Urine Neg (Negative); Blood Urine Neg (Negative); Glucose Urine UA Negative (Normal); Ketones Urine Negative (Negative); Leukocyte Esterase Urine Negative (Negative); Nitrate Urine Negative (Negative); Protein Urine Neg (Negative); Sulfosalicylic Acid Urine Negative (Negative); Urobilinogen Urine Norm (Negative)
--- NOTE | 2022-03-17 11:51 | PC.NURSE ---
AT BEDSIDE WITH PTMichael
--- NOTE | 2022-03-17 11:59 | PC.NURSE ---
VO FROM DR. KATZ PT IS ON A HOLD BUT IS NOT TO BE PLACED IN SCRUBS UNTIL INSTRUCTED FURTHER.
--- NOTE | 2022-03-17 11:59 | PC.NURSE ---
NOTIFIED CHARGE NURSE SARAH OF NEED OF A SITTER.
[2022-03-17 12:08] VITALS: BP 147/89; PULSE 92; RESP 16; O2SAT 96
--- NOTE | 2022-03-17 13:39 | PC.NURSE ---
DR. KATZ AT BEDSIDE SPEAKING WITH PT.
--- NOTE | 2022-03-17 14:40 | PC.NURSE ---
REPORT GIVEN TO SARAH RHODES.
[2022-03-17 17:36] VITALS: BP 147/89; PULSE 92; RESP 16; O2SAT 96
[2022-03-17 17:40] VITALS: BP 178/110; PULSE 78; RESP 17; TEMP 36.6; O2SAT 98
--- NOTE | 2022-03-17 18:06 | PC.ADMIT ---
[address] Admission Note: The patient,Nav Sanon,41 y/o, was given written information regarding hospital policies, unit procedures and contact persons. Patient's smoking status: never smoked. Vital Signs - 8 hr 03/17/22 12:08 03/17/22 17:36 03/17/22 17:40 Temperature 98 F Pulse Rate 92 92 78 Respiratory Rate 16 16 17 Blood Pressure 147/89 147/89 178/110 Pulse Oximetry 96 96 98 ADMITTED FROM ER VIA AT 1727. PT STATES HE IS HERE DUE TO SAYING THE WRONG THING. I CAME IN FOR A HEADACHE AND MADE A PASSING STATEMENT ABOUT BEING BETTER OFF AND THE SAID IF I LEFT HE WOULD 96 ME. PT DENIES ANY PSYCHIATRIC HISTORY AND DOES NOT TAKE ANY HOME MEDS. ALLERGIC TO PCN. DENIES SI/HI AND AVH ON ASSESSMENT AND STATES, I'VE NEVER HAD ANY OF THAT. PRESENTS WITH COLOSTOMY, SECURED TO LEFT LOWER QUADRANT OF ABDOMEN. COLOSTOMY SITE HAS MILD REDNESS AROUND SITE AND RASH IS NOTED TO MID ABDOMEN. PT CAME IN WITH A BP OF 185/135 WITH HR 78. PT CONTINUES TO REPORT RAY 10/10. LET PT SETTLE IN FOR A FEW MINUTES AND TOOK BP MANUALLY. BP WAS 178/[address] BURROUGHS OF HEADACHE 10 AND ELEVATED BP. NEW ORDERS RECEIVED TO GET A HOSPITALIST CONSULT. ORDERS PLACED FOR CONSULT AND DR. COLLIER IS MILK WAGON DRIVER. NOTIFIED DR. BURROUGHS OF NANDO BEING MILK WAGON DRIVER. ORIENTATED PT TO UNIT. ALL QUESTIONS ANSWERED AND SUPPORT VOICED.
[2022-03-17 19:59] VITALS: BP 154/96; PULSE 91; RESP 16; O2SAT 98
--- NOTE | 2022-03-17 22:00 | PC.NURSE ---
Patient requesting to leave AMA. notified. Convinced Patient to stay and be evaluated by physician in the morning.
[2022-03-17] MEDS: hyDROXYzine 25 mg Capsule 50 MG PO (22:25)
[2022-03-17] MEDS: trazodone 50 mg Tablet PO (22:25)
[2022-03-18 06:00] VITALS: BP 169/120; PULSE 76; RESP 18; O2SAT 96
[2022-03-18 06:17] VITALS: BP 169/120
[2022-03-18] MEDS: cloNIDine 0.1 mg Tablet PO (06:17)
--- NOTE | 2022-03-18 08:32 | P.CONIM_ITS ---
Providers/Reason For Consult Consulting Physician/Specialty*: hospitalist Reason for Consult*: htn urgency Attending Physician: Fuentes Vega MD Primary Care Provider: Ze Neumann MD History of Present Illness History of Present Illness Nav Sanon is a 41 year old male with a history of hypertension, has not taken his lisinopril in quite some time. I was asked to see the patient because of hypertensive urgency. He has received clonidine this morning, I have added chlorthalidone hydralazine amlodipine and lisinopril. Patient is not endorsing any headache, nonfocal symptoms. No active chest pain shortness orthopnea PND. Patient stating that he is not able to sleep because of his colostomy bag. Review of Systems Const: Denies: fever(s) Eyes: Denies: change in vision ENMT: Denies: throat pain Card: Denies: chest pain Resp: Denies: dyspnea GI: Denies: abdominal pain : Denies: flank pain Musc: Denies: neck pain Skin/Breast: Denies: rash Neuro: Denies: headache(s) Psych: Reports: anxiety and depression Endo: Denies: polyuria Flo/Lymph: Denies: easy bruising All/Imm: Denies: urticaria Medications/Allergies Home Medications Medication Instructions Recorded Confirmed Last Taken Type No Known Home Medications 03/17/22 03/17/22 Unknown History Allergies Allergy/AdvReac Type Severity Reaction Status Date / Time Penicillins Allergy Unknown Verified 03/17/22 09:04 Current Medications Generic Name Dose Route Start Last Admin Trade Name Freq PRN Reason Stop Dose Admin Clonidine HCl 0.1 mg 03/18/22 06:11 03/18/22 06:17 Clonidine 0.1 Mg Tablet PO 0.1 mg Q4H PRN Administration HYPERTENSION Hydroxyzine Pamoate 50 mg 03/17/22 17:40 03/17/22 22:25 Hydroxyzine 25 Mg Capsule PO 50 mg Q6H PRN Administration ANXIETY Trazodone HCl 50 mg 03/17/22 17:40 03/17/22 22:25 Trazodone 50 Mg Tablet PO 50 mg BEDTIME PRN Administration SLEEP PFSH Acute PFSH: Medical History Colostomy hernia Colostomy in place Hypertension Surgical History History of repair of ACL 1997 Family History (Updated 03/18/22 @ 10:31 by Radha Gibbs MD) Denies family history of CAD (coronary artery disease) Social History Smoking and tobacco status: never smoked Second hand smoke exposure: No Alcohol intake: never Desire information about alcohol rehabilitation?: No Desire information about substance/drug rehabilitation?: No Vitals/I&O/Wt Last Vital Signs Temp 98 F 03/17/22 17:40 Pulse 76 03/18/22 06:00 Resp 18 03/18/22 06:00 BP 169/120 03/18/22 06:17 Pulse Ox 96 03/18/22 06:00 Weight last 48 hrs Weight 122.47 kg Physical Exam Narrative: Nonfocal neuro exam NIH [address] Skin excoriation Seems to be well-healing Saturating well on room air S1, S2 Data : 03/17/22 08:06 03/17/22 08:06 Micro: Microbiology 03/17/22 10:31 Enteric Pathogens (PCR) - Final Stool - Stool Aspirate C.difficile Toxin B Gene (PCR) - Final A&P Assessment and plan (1) Suicidal ideation: Status: Acute (2) Hypertension: Status: Acute Plan Hypertensive urgency Patient has not taken his lisinopril quite some time For stage III hypertension I would add chlorthalidone, lisinopril, amlodipine and hydralazine, I would also add medications in his discharge med rec He can follow-up with his PCP No active chest pain or shortness of breath Nonfocal neuro exam I requested drug screen and TSH If he is going home today I have added medications in his discharge med rec Consult Attestations Medical Necessity Statement: As per NPU Time Spent in Patient Care: 20 Coding Level of Care Code Acute 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
[2022-03-18] MEDS: lisinopril 20 mg Tablet PO (09:10)
[2022-03-18] MEDS: hyDRALAzine 10 mg Tablet PO (09:10)
[2022-03-18] MEDS: potassium chloride ER 20 mEq Tablet 40 MEQ PO (09:11)
[2022-03-18] MEDS: chlorthalidone 25 mg Tablet 12.5 MG PO (09:12)
[2022-03-18] MEDS: amlodipine 5 mg Tablet 10 MG PO (09:12)
[2022-03-18] MEDS: fluoxetine 20 mg Capsule PO (09:12)
[2022-03-18 09:22] LABS: Thyroid Stimulating Hormone 1.54 uIU/mL (0.27-4.20)
--- NOTE | 2022-03-18 09:49 | PC.NURSE ---
PT STATES I WANT TO GO HOME AND BE WITH MY FAMILY. ITS FATHERS DAY WEEKEND. I SAID THE WRONG THING TO THE ER DR. Smith I'M PAYING FOR IT. JUST BECAUSE I WAS HAVING PASSING THOUGHTS OF NOT WANTING TO LIVE I GET PUT IN HERE. SUPPORT VOICED TO PT. PT DENIES PAIN. DENIES SI/HI AND AVH AT THIS TIME. DR. COLLIER HERE THIS AM TO SEE PT AND PLACED ORDERS FOR BP MEDICATIONS. BP DID GO DOWN TO 140/90 AFTER RECEIVING CLONIDINE 0.1 MG. EDUCATED PT ON NEW MEDICATIONS. VERBALIZES UNDERSTANDING.
--- NOTE | 2022-03-18 12:56 | W.PM.NPUH&PS ---
Providers/Chief Complaint Admitting Physician: Fuentes Vega MD Primary Care Provider: Ze Neumann MD Chief Complaint: Head Pain / Stomach pain HPI NPU History of Present Illness Nav Sanon is a 41 year old male who presented to the emergency department with the following report: Chief Complaint: Headache Stated Complaint: Head Pain / Stomach pain Time Seen by Provider: 03/17/22 07:02 Source: patient Mode of arrival: ambulatory Limitations: no limitations History of Present Illness: 41-year-old male who presents emergency room with headache and abdominal pain for the last 5 days. Patient reports previously having had a perforation of his bowel resulting in a colostomy otherwise not sure of the exact cause of the bowel perforation drip. He has had copious diarrhea through his colostomy for the last 5 days with intermittent abdominal cramping associated with it. He denies any hematochezia or melanic stools. He gets very nauseous but has not had any vomiting. He also has had a severe headache although does not correlate with episodes of diarrhea. MD elicited complaint: abdominal pain and other (Persistent diarrhea) Onset (ago): day(s) (5) Location: [facility] Severity: moderate Quality: cramping Radiation: none Migration to: no migration Exacerbating factors: nothing Relieving factors: nothing Associated Symptoms: Reports bloating, change in bowel habits, change in stool character, GI cramping, diarrhea, nausea and poor appetite; Denies anorexia, belching, chills, coffee ground emesis, constipation, dyspepsia, dysuria, excessive flatus, fever(s), heartburn, hematochezia, hematuria, hematemesis, fecal incontinence, loose stools, melena, syncope and vomiting. He was admitted to the neuropsychiatric unit for definitive treatment of those issues. He presents today reporting that he had a really bad morning yesterday. He didn?t really get into what the challenge was but just reports it was one of those bad mornings. He presented to the emergency department with issues surrounding other medical comorbidities including headache, issues with his colostomy bag, etc. then conversation with the ER doctor uncovered concerns for depression and suicidal thoughts which he could not deny and had no plan for how those things were going to get better. He reports he has really been struggling with his mental health ever since things with the colostomy bag and attempted revisions have been going on. He reports that he has never had inpatient hospitalization, never received outpatient treatment and has not been on psychiatric medications. He denies any significant addiction issues and denies any legal issues from addiction. He reports that there just get to be times where he is so tired of dealing with everything, plus his sleep has been poor due to sleeping in a recumbent chair and never really feeling rested. Speaking with his , he has gotten recommendations, though he has never followed through on those recommendations, and he endorses he needs to take responsibility for that. We discussed the risks, benefits and alternatives of a trial of Prozac and he understood and agreed to proceed as is documented in this note. He had already received Prozac prior to our conversation and denied any side effects from the medication. We discussed the critical need for him to work with his and outpatient providers, both for his medical comorbidities and his depression to make sure he is following through, getting refills, and all of those things so he doesn?t have these breakthrough moments where symptoms return. He denies any suicide attempts or self-injurious behavior. He denies significant anxiety, psychosis, ocd or any additional symptoms. He endorses feelings of low mood, helplessness, hopelessness, worthlessness, poor sleep, loss of interest in things that has been off and on for a few years now. Psychiatric History: As above. Substance Abuse History: As above Family History: There is limited mental health in the family and no addiction issues noted. There is a 1st cousin on his father?s side who committed suicide he reports and his reports there had been some conflicts in the family secondary to his parents dying and them not being able to come to an agreement on what to do with the properties that had been left. Developmental History: There are no reports of any issues at . He reports learning to walk and talk and meeting his developmental milestones on time and denies any need for speech therapy, learning support, emotional support or special education classes. Psychosocial History: The patient?s parents were together when he was born and he comes from a family of 7, one sibling is . He described his childhood as good and denies any emotional, physical or sexual abuse. He endorses being heterosexual with his longest relationship being over 20 years. He is currently and has a 20 year old and 8 year old son from that union. He is currently employed even with the challenges of having the colostomy bag. He currently lives in a house with his and his youngest son. Legal History: Denied. Medical History: Significant hypertension and colostomy bag are current medical issues. Meds NPU Home Medications Medication Instructions Recorded Confirmed Last Taken Type amlodipine 5 mg tablet 10 mg PO DAILY 30 Days #60 tab 03/18/22 Unknown Rx chlorthalidone 25 mg tablet 12.5 mg PO DAILY 30 Days #15 tab 03/18/22 Unknown Rx fluoxetine 20 mg capsule 20 mg PO DAILY 30 Days #30 cap 03/18/22 Unknown Rx hydralazine 10 mg tablet 10 mg PO TID 30 Days #90 tab 03/18/22 Unknown Rx hydroxyzine pamoate 25 mg capsule 50 mg PO Q6H PRN 30 Days #120 cap 03/18/22 Unknown Rx lisinopril 20 mg tablet 20 mg PO BID 30 Days #60 tab 03/18/22 Unknown Rx trazodone 50 mg tablet 50 mg PO BEDTIME PRN 30 Days #30 03/18/22 Unknown Rx tab Allergies Allergy/AdvReac Type Severity Reaction Status Date / Time Penicillins Allergy Unknown Verified 03/17/22 09:04 PFSH NPU PFSH: Medical History Colostomy hernia Colostomy in place Hypertension Surgical History History of repair of ACL 1998 Family History (Updated 03/18/22 @ 10:31 by Radha Gibbs MD) Denies family history of CAD (coronary artery disease) Social History Smoking and tobacco status: never smoked Second hand smoke exposure: No Alcohol intake: never Desire information about alcohol rehabilitation?: No Desire information about substance/drug rehabilitation?: No Mental Status Exam MSE Comments: This is an obese white male with hospital scrubs on with adequate grooming and eye contact. No abnormal movements except for mild psychomotor retardation. Cooperative with exam in mild distress. Speech was decreased rate and volume. Mood described as ?better than when I was in the emergency room?, affect is slightly subdued but brighter. Thought process, organized. Thought content: patient denies any suicidal or homicidal ideation, no delusions reported or noted, and denies any auditory or visual hallucinations. Attention and concentration are intact and memory appeared reliable though none were formally tested. He is alert and oriented three times. Insight and judgment appear fair. Impulse control appears fair. Vitals/I&O/Wt Last Vital Signs Temp 98 F 03/17/22 17:40 Pulse 76 03/18/22 06:00 Resp 18 03/18/22 06:00 BP 169/120 03/18/22 06:17 Pulse Ox 96 03/18/22 06:00 Weight last 48 hrs Weight 122.47 kg Data NPU : 03/17/22 08:06 03/17/22 08:06 Micro: Microbiology 03/17/22 10:31 Enteric Pathogens (PCR) - Final Stool - Stool Aspirate Parasite Antigen Panel - Final C.difficile Toxin B Gene (PCR) - Final Microbiology 03/17/22 10:31 Stool - Stool Aspirate Enteric Pathogens (PCR) - Final 03/17/22 10:31 Stool - Stool Aspirate Parasite Antigen Panel - Final 03/17/22 10:31 Stool - Stool Aspirate C.difficile Toxin B Gene (PCR) - Final A&P Assessment and plan (1) Major depressive disorder: Status: Acute (2) Hypertensive urgency: Status: Acute (3) Hypertension: Status: Acute (4) Colostomy hernia: Status: Acute (5) Colostomy in place: Status: Acute Plan This is a 41 year old white male with significant medical issues who presented with suicidal thinking but open to a trial of Prozac. 1. Continue current medications except continue Prozac 20 mg po q daily which was initiated yesterday. 2. Encourage individual, group and milieu therapy 3. Continue q-15 minute check for safety 4. Hospital consult was obtained for significant hypertension and the recommendations will be administered and medications dispensed at discharge. 5. Patient wanting to discharge and long conversation with deemed that safety risk would be minimal. His is supportive and will help him get through this process. Discussed weapons in the home. Attestations NPU Medical Necessity Statement*: Inpatient hospitalization is medically necessary and the clinically appropriate intervention at this time. Initiated medication and monitored patient for stability improvement and concerns for safety and an appropriate discharge plan was created with his ability to contract for safety outside of the hospital prior to discharge. He meets the criteria for inpatient stay, is not on a 96 hour hold at this point, and we will allow him to discharge given that reality. Coding Level of Care Code Acute Lodging House Keeper for Chg Fwd Diagnoses Major depressive disorder F32.9 Hypertensive urgency I16.0 Hypertension I10 Colostomy hernia K94.[address] Z93.3
--- NOTE | 2022-03-18 13:05 | W.PM.NPUDCS ---
Diagnoses at Discharge Discharge Diagnosis (1) Suicidal ideation: Status: Resolved (2) Hypertension: Status: Acute Reason for Visit Reason for Visit: Head Pain / Stomach pain Brief History: History of Present Illness Nav Sanon is a 41 year old male who presented to the emergency department with the following report: Chief Complaint: Headache Stated Complaint: Head Pain / Stomach pain Time Seen by Provider: 03/17/22 07:02 Source: patient Mode of arrival: ambulatory Limitations: no limitations History of Present Illness:?? 41-year-old male who presents emergency room with headache and abdominal pain for the last 5 days.? Patient reports previously having had a perforation of his bowel resulting in a colostomy otherwise not sure of the exact cause of the bowel perforation drip.? He has had copious diarrhea through his colostomy for the last 5 days with intermittent abdominal cramping associated with it.? He denies any hematochezia or melanic stools.? He gets very nauseous but has not had any vomiting.? He also has had a severe headache although does not correlate with episodes of diarrhea. MD elicited complaint: abdominal pain and other (Persistent diarrhea) Onset (ago): day(s) (5) Location: [facility] Severity: moderate Quality: cramping Radiation: none Migration to: no migration Exacerbating factors: nothing Relieving factors: nothing Associated Symptoms: Reports bloating, change in bowel habits, change in stool character, GI cramping, diarrhea, nausea and poor appetite; Denies anorexia, belching, chills, coffee ground emesis, constipation, dyspepsia, dysuria, excessive flatus, fever(s), heartburn, hematochezia, hematuria, hematemesis, fecal incontinence, loose stools, melena, syncope and vomiting. He was admitted to the neuropsychiatric unit for definitive treatment of those issues. He presents today reporting that he had a really bad morning yesterday. He didn?t really get into what the challenge was but just reports it was one of those bad mornings. He presented to the emergency department with issues surrounding other medical comorbidities including headache, issues with his colostomy bag, etc. then conversation with the ER doctor uncovered concerns for depression and suicidal thoughts which he could not deny and had no plan for how those things were going to get better. He reports he has really been struggling with his mental health ever since things with the colostomy bag and attempted revisions have been going on. He reports that he has never had inpatient hospitalization, never received outpatient treatment and has not been on psychiatric medications. He denies any significant addiction issues and denies any legal issues from addiction. He reports that there just get to be times where he is so tired of dealing with everything, plus his sleep has been poor due to sleeping in a recumbent chair and never really feeling rested. Speaking with his , he has gotten recommendations, though he has never followed through on those recommendations, and he endorses he needs to take responsibility for that. We discussed the risks, benefits and alternatives of a trial of Prozac and he understood and agreed to proceed as is documented in this note. He had already received Prozac prior to our conversation and denied any side effects from the medication. We discussed the critical need for him to work with his and outpatient providers, both for his medical comorbidities and his depression to make sure he is following through, getting refills, and all of those things so he doesn?t have these breakthrough moments where symptoms return. He denies any suicide attempts or self-injurious behavior. He denies significant anxiety, psychosis, ocd or any additional symptoms. He endorses feelings of low mood, helplessness, hopelessness, worthlessness, poor sleep, loss of interest in things that has been off and on for a few years now. Psychiatric History: As above. Substance Abuse History: As above Family History: There is limited mental health in the family and no addiction issues noted. There is a 1st cousin on his father?s side who committed suicide he reports and his reports there had been some conflicts in the family secondary to his parents dying and them not being able to come to an agreement on what to do with the properties that had been left. Developmental History: There are no reports of any issues at . He reports learning to walk and talk and meeting his developmental milestones on time and denies any need for speech therapy, learning support, emotional support or special education classes. Psychosocial History: The patient?s parents were together when he was born and he comes from a family of 7, one sibling is . He described his childhood as good and denies any emotional, physical or sexual abuse. He endorses being heterosexual with his longest relationship being over 20 years. He is currently and has a 20 year old and 8 year old son from that union. He is currently employed even with the challenges of having the colostomy bag. He currently lives in a house with his and his youngest son. Legal History: Denied. Medical History: Significant hypertension and colostomy bag are current medical issues. Hospital Course Hospital Course He quickly acclimated to the individual, group and milieu therapies provided. He was started on Prozac 20 mg p.o. every morning and received 2 doses while in the hospital. He also had a hospitalist consult given his extremely high blood pressures and a plan of action for in the hospital as well as after discharge was implemented. He had modest improvement during the hospitalization and we were able to collaborate with his about continuing the medication as well as discussed the plan for a referral to [facility] to be done first thing Sunday and the social work team convenience. and were aware and understanding of this referral yet to come and that it is a critical part of his wellness along with the medication. He was able to contract for safety outside of the hospital prior to discharge. During the hospitalization, patient had routine laboratory studies which were within normal limits except for few outliers. Additionally there was a general medical evaluation which was also within normal limits and revealed no new acute processes. Though he did have hospitalist intervention on his blood pressure which is a chronic condition but that has not been well managed. Discharge Summary: At the time of discharge, he denied psychosis or lethality. Mood and anxiety were well managed. Patient endorsed a plan to avoid all drugs of abuse and follow-up with the aftercare recommendations of the treatment team. Patient was evaluated and deemed to be absent credible lethality, and was a voluntary patient that was not interested in continued hospitalization, so was discharged. Mental Status Exam MSE Comments: This is an obese white male with hospital scrubs on with adequate grooming and eye contact. No abnormal movements except for mild psychomotor retardation. Cooperative with exam in no acute distress. Speech was decreased rate and volume. Mood described as ?better than when I was in the emergency room?, affect is slightly subdued but brighter. Thought process, organized. Thought content: patient denies any suicidal or homicidal ideation, no delusions reported or noted, and denies any auditory or visual hallucinations. Attention and concentration are intact and memory appeared reliable though none were formally tested. He is alert and oriented three times. Insight and judgment appear fair. Impulse control appears fair.? Discharge Data Studies Completed and Pending: Completed Studies During Hospitalization Category Date Time Status CT abdomen pelvis w con* [id number] Stat Cat Scan 03/17/22 08:[address] head wo con* [id number] Stat Cat Scan 03/17/22 08:09 Completed Pending at discharge Category Date Time Status Drug Screen, Urin e Routine Lab 03/18/22 12:43 Received Radiology Impressions Abdomen/Pelvis CT 03/17/22 08:06 IMPRESSION: 1. Status post RIGHT lower quadrant colostomy with a large parastomal hernia. Large parastomal hernia has been previously described and contains both small bowel and colon. There is no obstructive pattern. 2. No ascites or adenopathy. 3. Cholelithiasis without acute cholecystitis. Head CT 03/17/22 08:09 Impression: Negative CT scan of the head Laboratory Results WBC 7.5 10^3/uL (4.0- 10.0) 03/17/22 08:06 RBC 5.66 10^6/uL (4.1 -5.3) H 03/17/22 08:06 Hgb 16.8 g/dL (11.7-1 6.6) H 03/17/22 08:06 Hct 48.2 % (42.0-52.0 ) 03/17/22 08:06 MCV 85.2 fl (80-94) 03/17/22 08:06 MCH 29.7 pg (28.0-34. 0) 03/17/22 08:06 MCHC 34.9 g/dL (30.0-3 6.0) 03/17/22 08:06 RDW 12.6 % (12.1-15.1 ) 03/17/22 08:06 Plt Count 235 10^3/cmm (130 -400) 03/17/22 08:06 MPV 10.7 fL (7.4-10.4 ) H 03/17/22 08:06 Neut % (Auto) 61.1 % 03/17/22 08:06 Lymph % (Auto) 27.9 % 03/17/22 08:06 [place] % (Auto) 8.5 % 03/17/22 08:06 Eos % (Auto) 1.7 % 03/17/22 08:06 Baso % (Auto) 0.5 % 03/17/22 08:06 Neut # (Auto) 4.60 10^3/uL (1.8 -7.7) 03/17/22 08:06 Lymph # (Auto) 2.1 10^3/uL (0.8- 4.8) 03/17/22 08:06 [place] # (Auto) 0.6 10^3/uL (0.2- 0.9) 03/17/22 08:06 Eos # (Auto) 0.1 10^3/uL (0.0- 0.8) 03/17/22 08:06 Baso # (Auto) 0.0 10^3/uL (0.0- 0.1) 03/17/22 08:06 Nucleated RBC % (a uto) 0 % 03/17/22 08:06 Nucleated RBCs # 0.0 /100WBC 03/17/22 08:06 Sodium 137 mmol/L (136-1 45) 03/17/22 08:06 Potassium 3.4 mmol/L (3.5-5 .1) L 03/17/22 08:06 Chloride 100 mmol/L (98-10 7) 03/17/22 08:06 Carbon Dioxide 27 mmol/L (22-29) 03/17/22 08:06 Anion Gap 13.4 (5-19) 03/17/22 08:06 BUN 7 mg/dL (6-20) 03/17/22 08:06 Creatinine 0.9 mg/dL (0.7-1. 2) 03/17/22 08:06 GFR Calculation 92.1 mL/min (90-1 30) 03/17/22 08:06 Glucose 99 mg/dL (65-115) 03/17/22 08:06 Calculated Osmolal ity 282 mOsm/kg (285- 295) L 03/17/22 08:06 Calcium 8.9 mg/dL (8.5-10 .5) 03/17/22 08:06 Total Bilirubin 0.8 mg/dL (0.15-1 .2) 03/17/22 08:06 AST 18 U/L (0-40) 03/17/22 08:06 ALT 13 U/L (0-41) 03/17/22 08:06 Alkaline Phosphata se 66 IU/L (40-130) 03/17/22 08:06 Total Protein 7.8 g/dL (6.6-8.7 ) 03/17/22 08:06 Albumin 4.1 g/dL (3.5-5.2 ) 03/17/22 08:06 Globulin 3.7 g/dL (1.3-4.6 ) 03/17/22 08:06 TSH 1.54 uIU/mL (0.27 -4.20) 03/17/22 08:06 Urine Color Yellow (Yellow) 03/17/22 09:35 Urine Appearance Clear (CLEAR) 03/17/22 09:35 Urine pH 8 (5-7) H 03/17/22 09:35 Ur Specific Gravit y 1.010 (1.005-1.0 30) 03/17/22 09:35 Urine Protein Neg (Negative) 03/17/22 09:35 Urine Glucose (UA) Negative (Normal ) 03/17/22 09:35 Urine Ketones Negative (Negati ve) 03/17/22 09:35 Urine Blood Neg (Negative) 03/17/22 09:35 Urine Nitrate Negative (Negati ve) 03/17/22 09:35 Urine Bilirubin Neg (Negative) 03/17/22 09:35 Prot Sulfosalicyli c Acd Negative (Negati ve) 03/17/22 09:35 Urine Urobilinogen Norm mg/dL (Negat deya) 03/17/22 09:35 Ur Leukocyte Mayte ase Negative (Negati ve) 03/17/22 09:35 Vitals: Last Vital Signs Temp 98 F 03/17/22 17:40 Pulse 76 03/18/22 06:00 Resp 18 03/18/22 06:00 BP 169/120 03/18/22 06:17 Pulse Ox 96 03/18/22 06:00 Discharge Plan Discharge Patient Disposition: Home Condition: Stable Prescriptions: New lisinopril 20 mg Tablet 20 mg PO BID 30 Days Qty: 60 1RF chlorthalidone 25 mg Tablet 12.5 mg PO DAILY 30 Days Qty: 15 1RF amlodipine 5 mg Tablet 10 mg PO DAILY 30 Days Qty: 60 1RF hydralazine 10 mg Tablet 10 mg PO TID 30 Days Qty: 90 1RF trazodone 50 mg Tablet 50 mg PO BEDTIME PRN (Reason: Sleep) 30 Days Qty: 30 1RF fluoxetine 20 mg Capsule 20 mg PO DAILY 30 Days Qty: 30 1RF hydroxyzine pamoate 25 mg Capsule 50 mg PO Q6H PRN (Reason: Anxiety) 30 Days Qty: 120 1RF Discharge Orders: Discharge Order (Routine); Ordered 03/18/22 Ordered By: Fuentes Vega Referrals: Ze Neumann MD [Primary Care Provider] - Discharge Diet: Regular Discharge Activity: Resume usual activity Patient Instructions: Hypertension, Depression (DC), Suicide Prevention (DC), Opioid Safety Discharge Attestations NPU Time Spent in Discharge Care*: greater than 30 min Specific Discharge Activities: Specific discharge activities: educating patient, educating and/or supporting family/caregiver, discussing with correctional casework specialist/social workers/dc planners, documenting/other paperwork and evaluating patient/reviewing data Coding Level of Care Code Acute Chg FW DC note Diagnoses Suicidal ideation R45.851 Hypertension I10
[2022-03-18 13:23] VITALS: BP 138/72; PULSE 78; RESP 20; TEMP 37.1; O2SAT 98
--- NOTE | 2022-03-18 13:36 | PC.NURSE ---
DISCHARGE NOTE DISCHARGE TEACHING COMPLETED. EDUCATION PROVIDED ON ALL MEDICATION. SUPERVISOR SEWING ROOM NOTIFIED TO SET UP [facility] [place] REFERRAL ON SUNDAY WHEN THEY ARRIVE. PT VERBALIZED UNDERSTANDING. DENIES PAIN. DENIES SI/HI AND AVH AT THIS TIME. PT LEFT FACILTIY AT 1338. LEFT WITH ALL BELONGINGS.
[2022-03-18 13:43] LABS: Amphetamines Screen Urine Negative (Negative); Barbiturates Screen Urine Negative (Negative); Benzodiazepines Screen Urine Negative (Negative); Cocaine Screen Urine Negative (Negative); Opiate Screen Urine Negative (Negative); PCP Screen Urine Negative (Negative); THC Screen Urine Negative (Negative)
--- NOTE | 2022-03-20 08:06 | PC.OT ---
OT EVALUATION ORDERS RECEIVED. PATIENT DISCHARGED BEFORE EVALUATION COULD BE COMPLETED.
== END 2022-03-18 13:38 | disposition home or self-care (01) ==
LOC: ER 14:01 → NP 03-18 10:27
PROVIDERS: Internal Medicine; Admitting Provider Psychiatry & Neurology Psychiatry; Emergency Provider Family Medicine; PCP Family Medicine; Visit Provider Psychiatry & Neurology Psychiatry
DX: R45.851 Suicidal ideations (principal); I10 Essential (primary) hypertension; F32.9 Major depressive disorder, single episode, unspecified; I16.0 Hypertensive urgency; K94.09 Other complications of colostomy; Z93.3 Colostomy status
CPT/HCPCS: 70450; 74177; 80053; 80306; 81003; 84443; 85025; 87493; 87506; 96372; 96374; 96375; 99285; G0378; J0360; J1200; J1885; J3490; J7030; Q9967

== ENCOUNTER → 2023-10-10 11:27 | Outpatient (BNVA) | payer OTHER, SELFPAY | PROVIDERS: PCP Family Medicine; Visit Provider Registered Nurse Neonatal Intensive Care | DX: M25.562 Pain in left knee (principal) | CPT/HCPCS: 73562 ==

== ENCOUNTER 2023-10-31 17:10 | Emergency (ER) | payer OTHER, SELFPAY ==
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
[2023-10-31 17:16] VITALS: BP 199/126; PULSE 83; RESP 18; O2SAT 97; BMI 38.7
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
[2023-10-31] MEDS: hyDRALAzine 20 mg/mL INJ 1 mL 10 MG IM (17:47)
[2023-10-31 17:53] VITALS: O2SAT 98
[2023-10-31 18:34] VITALS: BP 169/106
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
[2023-10-31 19:15] VITALS: BP 163/107; PULSE 83; O2SAT 96
[2023-10-31 21:15] VITALS: BP 160/106; PULSE 84; RESP 17; O2SAT 98
== END 2023-10-31 20:05 | disposition home or self-care (01) ==
PROVIDERS: Emergency Provider Emergency Medicine; PCP Family Medicine
DX: S13.4XXA Sprain of ligaments of cervical spine, initial encounter (principal); W22.11XA Striking against or struck by driver side automobile airbag, initial encounter; V89.2XXA Person injured in unspecified motor-vehicle accident, traffic, initial encounter
CPT/HCPCS: 70450; 71045; 72125; 73562; 96372; 99284; J0360

== ENCOUNTER 2023-12-10 12:45 | Emergency (ER) | payer OTHER, SELFPAY ==
[2023-12-10] VITALS (9 sets, daily range): BP systolic 145–197; BP diastolic 88–131; PULSE 72–85; RESP 18; TEMP 36.8; O2SAT 96–99; BMI 39.0
--- NOTE | 2023-12-10 12:49 | ECG_ITS ---
[facility] Test Date: 2023-12-10 Pat Name: Nav Sanon Department: Room: Gender: Male Director Cardiology: : 1980 Requested By: [place] Restrepo Order Number: [id number] Tayla MD: Nav Arellano M.D. Measurements Intervals [place] Rate: 78 P: 59 SC: 186 QRS: 125 QRSD: 102 T: 26 QT: 406 QTc: 462 Interpretive Statements SINUS RHYTHM PATTERN CONSISTENT WITH PULMONARY DISEASE POSSIBLE RIGHT VENTRICULAR HYPERTROPHY [SOME/ALL OF: PROMINENT R IN V1, LATE TRANSITION, RAD, MANDA, SSS] No previous ECG available for comparison Electronically Signed On 12-10-2023 14:22:21 CDT by Nav Arellano M.D. [id number]
--- NOTE | 2023-12-10 13:37 | XRR_ITS ---
PROCEDURE INFORMATION: Exam: XR Chest Exam date and time: 12/10/2023 2:01 PM Age: 43 years old Clinical indication: Cough and dyspnea and wheezing; Additional info: Dyspnea/cough TECHNIQUE: Imaging protocol: Radiologic exam of the chest. Views: 1 view. COMPARISON: CR (CHEST, ) 10/31/2023 5:29 PM FINDINGS: Lungs: Unremarkable. No consolidation. Pleural spaces: Unremarkable. No pleural effusion. No pneumothorax. Heart/Mediastinum: Normal heart size. Otherwise, unremarkable mediastinal contours. Vasculature: Unchanged tortuous aorta. Bones/joints: Unchanged mild-moderate scoliosis with multilevel spondylosis. XR/XR chest 1V portable [id number] IMPRESSION: No acute disease.
[2023-12-10 13:59] LABS: Basophils % 0.6 %; Eosinophils # 0.1 10^3/uL (0.0-0.8); Eosinophils % 1.4 %; Hematocrit 50.4 % (37-53); Lymphocytes # 1.6 10^3/uL (0.8-4.8); Mean Corpuscular HGB Conc 33.1 g/dL (30-55); Mean Corpuscular Hemoglobin 29.6 pg (27-33); Mean Corpuscular Volume 89.2 fl (82-101); Mean Platelet Volume 10.4 fL (7.4-10.4); Monocytes # 0.5 10^3/uL (0.2-0.9); Monocytes % 7.8 %; Neutrophils # 4.29 10^3/uL (1.8-7.7); Neutrophils % 65.7 %; Nucleated Red Blood Cells % 0 %; Platelet Count 227 10^3/cmm (157-399); Red Blood Count 5.65 10^6/uL (3.85-5.65); White Blood Count 6.53 10^3/uL (3.29-11.43)
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
[2023-12-10] MEDS: hyDRALAzine 20 mg/mL INJ 1 mL IVP (14:21)
[2023-12-10 14:26] LABS: Troponin(5th) Baseline 7 ng/L (0-15)
[2023-12-10 14:29] LABS: Alanine Aminotransferase 15 U/L (0-41); Albumin Level 4.2 g/dL (3.5-5.2); Alkaline Phosphatase 63 U/L (40-130); Anion Gap 12.5 (5-19); Aspartate Amino Transferase 19 U/L (0-40); Blood Urea Nitrogen 12 mg/dL (6-20); Calcium 8.9 mg/dL (8.5-10.5); Carbon Dioxide 29 mmol/L (22-29); Chloride 102 mmol/L (98-107); Creatinine Clr Calc Pharmacy 122.9073; Globulin 3.2 g/dL (1.3-4.6); Glomerular Filtration Rate 80.8 mL/min (90-130); Glucose 86 mg/dL (65-115); Osmolality Calculated 289 mOsm/kg (285-295); Potassium 3.5 mmol/L (3.5-5.1); Sodium 140 mmol/L (136-145); Total Bilirubin 0.7 mg/dL (0.15-1.2); Total Protein 7.4 g/dL (6.6-8.7)
[2023-12-10] MEDS: amlodipine 5 mg Tablet PO (14:55)
[2023-12-10] MEDS: lisinopril 20 mg Tablet PO (14:55)
[2023-12-10] MEDS: labetalol 5 mg/mL SDV 20mL 10 MG IVP (15:02)
--- NOTE | 2023-12-10 15:15 | ECG_ITS ---
[facility] Test Date: 2023-12-10 Pat Name: Nav Sanon Department: Room: Gender: Male Group Leader: : 1980 Requested By: [place] Restrepo Order Number: [id number] Tayla MD: Vesta Hawkins M.D. Measurements Intervals [place] Rate: 75 P: 68 CT: 191 QRS: 109 QRSD: 104 T: 31 QT: 380 QTc: 426 Interpretive Statements SINUS RHYTHM PATTERN CONSISTENT WITH PULMONARY DISEASE POSSIBLE RIGHT VENTRICULAR HYPERTROPHY [SOME/ALL OF: PROMINENT R IN V1, LATE TRANSITION, RAD, MANDA, SSS] Compared to ECG 12/10/2023 12:49:36 No significant changes Electronically Signed On 12-11-2023 23:07:24 CDT by Vesta Hawkins M.D. [id number]
[2023-12-10 16:37] LABS: Troponin 5 2HR 6.71 ng/L (0-15)
[2023-12-10 16:38] LABS: Troponin 5 2HR Delta -0.29 ABS# (0-10)
== END 2023-12-10 17:06 | disposition home or self-care (01) ==
PROVIDERS: Emergency Provider Family Medicine; PCP Family Medicine
DX: I10 Essential (primary) hypertension (principal)
CPT/HCPCS: 36415; 71045; 80053; 84484; 85025; 93005; 96374; 96375; 99285; J0360; J3490

== ENCOUNTER 2024-07-26 17:57 | Emergency (ER) | payer OTHER, SELFPAY ==
[2024-07-26 18:04] VITALS: BP 171/123; PULSE 68; RESP 16; TEMP 36.6; O2SAT 97; BMI 38.7
--- NOTE | 2024-07-26 18:23 | CTR_ITS ---
PROCEDURE INFORMATION: Exam: CT Abdomen And Pelvis With Contrast Exam date and time: 07/26/2024 6:34 PM Age: 44 years old Clinical indication: Abdominal pain; Generalized; Prior surgery; Surgery date: 6+ months; Surgery type: Colon resection. Colostomy; Patient HX: C/O diffuse abd pain with diarrhea. Known large ventral hernia. ; Additional info: Abdominal pain, diarrhea, abdominal distention TECHNIQUE: Imaging protocol: Computed tomography of the abdomen and pelvis with contrast. Radiation optimization: All CT scans at this facility use at least one of these dose optimization techniques: automated exposure control; mA and/or kV adjustment per patient size (includes targeted exams where dose is matched to clinical indication); or iterative reconstruction. Contrast material: OMNI 350; Contrast volume: 100 ml; Contrast route: INTRAVENOUS (IV); COMPARISON: CT abdomen pelvis w con* [id number] 03/17/2022 8:34 AM RADIATION DOSE METRICS: Total DLP (mGy-cm): 967.49 FINDINGS: Liver: Normal. No mass. Gallbladder and biliary ducts: Cholelithiasis again noted. Phrygian cap along the gallbladder fundus. Pancreas: Normal. No ductal dilation. Spleen: The spleen is mildly enlarged, measuring 14.4 cm AP. Adrenal glands: Normal. No mass. Kidneys and ureters: Subcentimeter renal hypodensities remain too small to characterize but likely represent cysts. A 1.6 cm exophytic focus which measures slightly above simple fluid in attenuation is again seen along the lower pole of the right kidney, previously 1.3 cm. Stomach and bowel: No evidence of bowel obstruction. Appendix: No evidence of appendicitis. Intraperitoneal space: Unremarkable. No free air. No significant fluid collection. Vasculature: Unremarkable. No abdominal aortic aneurysm. Lymph nodes: Unremarkable. No enlarged lymph nodes. Urinary bladder: Circumferential bladder wall thickening is likely related to underdistention. Reproductive: Unremarkable as visualized. Bones/joints: Unremarkable. No acute fracture. Soft tissues: Left lower quadrant ostomy is again seen with a large parastomal hernia containing nonobstructed loops of both small and large bowel. The overall appearance is similar to prior. Hernia neck measures 17.[address]/CT abdomen pelvis w con* [id number] IMPRESSION: 1. No significant interval change in a large left-sided parastomal hernia containing nonobstructed loops of small and large bowel. 2. Cholelithiasis without CT evidence of acute cholecystitis. 3. A mildly complex hypodense structure arising from the lower pole of the right kidney has minimally increased in size since 202 and could represent a complex cyst. Neoplasm possible but considered less likely given minimal interval change. Nonemergent renal ultrasound could be considered for further assessment if warranted. CT or MRI abdomen renal mass protocol could also be considered. COMMENTS: Consistent with the [employer]'s Incidental Findings Committee white paper (J Am Barb Radiol 2018): Any incidental renal lesion less than 1 cm or classified as too small to characterize, or any incidental cystic renal lesion characterized as simple-appearing, is likely benign. No follow-up imaging is recommended for these lesions per consensus recommendations based on imaging criteria.
--- NOTE | 2024-07-26 18:33 | W.ED.ABDPA2 ---
HPI - Abdominal Pain General: Chief Complaint: Abdominal Pain Stated Complaint: abdominal cramping/pain, Diarhea Time Seen by Provider: 07/26/24 18:17 History of Present Illness: Nav Tang is a 44-year-old male that presents to the emergency department with abdominal pain and diarrhea. Patient had a history of diverticulitis and had a bowel perforation about 10 years ago. As a result he has had a colostomy since that time. He has a large abdominal hernia. Patient denies fever or chills. He denies nausea or vomiting. He gets pain in the right upper quadrant which then goes away as quickly as it comes on. Patient's other medical history includes hypertension Associated Symptoms: Reports GI cramping and diarrhea; Denies bloating, chills, constipation, dysuria, fever(s), hematochezia, hematuria, nausea and vomiting Related Data Previous Rx's Medication Instructions Recorded amlodipine 5 mg tablet 5 mg PO DAILY #30 tabs 12/10/23 lisinopril 20 mg tablet 20 mg PO DAILY #30 tabs 12/10/23 mupirocin 2 % topical ointment 1 applic topical TID #15 grams 07/16/24 sulfamethoxazole 800 1 tab PO Q12H #14 tabs 07/16/24 mg-trimethoprim 160 mg tablet (Bactrim DS) dicyclomine 20 mg tablet 20 mg PO TID PRN Abdominal 07/26/24 cramping #20 tabs Allergies Allergy/AdvReac Type Severity Reaction Status Date / Time Penicillins Allergy Unknown Verified 07/26/24 18:02 Review of Systems General: Reports: 10 or more systems reviewed and unremarkable except in HPI and below Const: Denies: fever(s), chills, change in appetite, change in weight, fatigue or malaise Card: Denies: chest pain, palpitations, irregular heart rhythm, edema, dyspnea on exertion, orthopnea or leg pain with exertion Resp: Denies: dyspnea, productive cough, non-productive cough, wheezing, stridor or chest congestion GI: Reports: abdominal pain, diarrhea and GI cramping; Denies: nausea, vomiting, dysphagia, constipation, bloating or hematochezia : Denies: flank pain, dysuria, urinary frequency, urinary urgency, urinary hesitancy, oliguria or hematuria Musc: Denies: neck pain, back pain, extremity pain, joint pain, joint swelling, joint redness, joint warmth or muscle weakness Skin/Breast: Denies: rash, pruritus, erythema, photosensitivity or new lesions Neuro: Denies: headache(s), numbness in extremities, weakness in extremities, sensory changes, lack of coordination, difficulty walking, frequent falls, dizziness, confusion, Slurred speech present, difficulty communicating thoughts, seizure-like activity or involuntary movements Endo: Denies: polyuria, polydipsia or tired all the time Flo/Lymph: Denies: easy bruising or easy bleeding PFSH ED PFSH: Medical History Colostomy hernia Colostomy in place Hypertension Surgical History History of repair of ACL 1998 Family History Denies family history of CAD (coronary artery disease) Social History Smoking and tobacco/nicotine status: never used tobacco/nicotine Second hand smoke exposure: No Alcohol intake: never Substance/Drug Use: never Physical Exam Const: COMMON NORMALS: no acute distress, patient oriented x3 and alert GENERAL APPEARANCE: cooperative ORIENTATION/CONSCIOUSNESS: Yes awake, Yes oriented to person, Yes oriented to place and Yes oriented to time Neck/C-Spine: COMMON NORMALS: full ROM GENERAL: Yes normal visual inspection Lymph: LYMPHATIC: no lymphadenopathy noted Chest: COMMONS NORMALS: normal inspection of the chest Breast/axilla inspection: Yes no chest deformity, asymmetry, normal contours, no nodules, masses, tenderness Resp: COMMON NORMALS: normal respiratory effort, No retractions, No use of accessory muscles and clear to auscultation bilaterally EFFORT & INSPECTION: Yes able to speak in complete sentences and Yes symmetric chest movement AUSCULTATION: clear to auscultation bilaterally Cardio: COMMON NORMALS: regular rate, regular rhythm and Peripheral pulses 2+ throughout RATE: regular rate RHYTHM: regular rhythm PERIPHERAL PULSES: Peripheral pulses 2+ throughout GI: COMMON NORMALS: Soft to palpation INSPECTION: Yes normal to inspection AUSCULTATION: Yes normoactive bowel sounds PALPATION: Yes Soft to palpation and Yes Tenderness to palpation present (GI) Details: RUQ RECTAL EXAM: Yes deferred GI image (male): 1. Hernia 2. Scar 3. Colostomy Extremity: COMMON NORMALS: normal to inspection GENERAL: Yes normal exam except as noted Neuro: COMMON NORMALS: patient oriented x3 SENSORIUM/ORIENTATION: Yes alert, Yes oriented to person, Yes oriented to place and Yes oriented to time CRANIAL NERVES: Yes CN normal except as noted Skin: COMMON NORMALS: no rashes or lesions noted, no wounds and turgor normal GENERAL SKIN EXAM: no rashes or lesions noted and turgor normal Course Vital Signs: Vital signs: Vital Signs Temperature 97.9 F 07/26/24 18:04 Pulse Rate 68 07/26/24 18:04 Respiratory Rate 16 07/26/24 18:04 Blood Pressure 171/123 07/26/24 18:04 Pulse Oximetry 97 07/26/24 18:04 MDM - Abdominal Pain Medical Decision Making Patient is a 44-year-old male that presents to the emergency department with abdominal pain and diarrhea. Onset of symptoms 1 day ago. Patient denies nausea vomiting or fevers. His pain is located in the right upper quadrant. He describes flatus and diarrhea. He has a ostomy from bowel resection secondary to diverticulitis 10 years ago. Was recently he was started on Bactrim for cellulitis. He has completed the antibiotics. He does have a large hernia. Differential diagnosis includes gallbladder disease, gastroenteritis, hernia, incarcerated hernia. Patient underwent laboratory studies that included CBC CMP and lipase. Lipase was 26. His CMP did not reveal any significant electrolyte abnormality, liver dysfunction, renal dysfunction or elevated bilirubin. His CBC does not reveal a leukocytosis or anemia. The CT of his abdomen pelvis did reveal cholelithiasis without cholecystitis or obstruction. This could be the source of his complaints. There is no evidence of a bowel obstruction or incarcerated/strangulated bowel in his hernia. CT did show renal cyst that has increased in size since 2021. It is recommended that he follow-up outpatient for renal ultrasound. Patient may also benefit from gallbladder ultrasound or HIDA scan. All of these will be done outpatient. Patient has been instructed to follow-up with primary care this week for recheck of todays complaints and to initiate further workup. He was given a dose of Bentyl here in the emergency department and discharged home with a prescription. At this time no further diagnostics are warranted and all questions were answered Lab Data 07/26/24 18:53 07/26/24 18:53 Labs/Radiology: Radiology Impressions Abdomen/Pelvis CT 07/26/24 18:23 IMPRESSION: 1. No significant interval change in a large left-sided parastomal hernia containing nonobstructed loops of small and large bowel. 2. Cholelithiasis without CT evidence of acute cholecystitis. 3. A mildly complex hypodense structure arising from the lower pole of the right kidney has minimally increased in size since 2021 and could represent a complex cyst. Neoplasm possible but considered less likely given minimal interval change. Nonemergent renal ultrasound could be considered for further assessment if warranted. CT or MRI abdomen renal mass protocol could also be considered. COMMENTS: Consistent with the [employer]'s Incidental Findings Committee white paper (J Am Barb Radiol 2018): Any incidental renal lesion less than 1 cm or classified as too small to characterize, or any incidental cystic renal lesion characterized as simple-appearing, is likely benign. No follow-up imaging is recommended for these lesions per consensus recommendations based on imaging criteria. Laboratory Results WBC 5.62 10^3/uL (3.29-11.43) 07/26/24 18:53 RBC 4.87 10^6/uL (3.85-5.65) 07/26/24 18:53 Hgb 14.70 g/dL (11.27-16.99) 07/26/24 18:53 Hct 44.2 % (37-53) 07/26/24 18:53 MCV 90.8 fl (82-101) 07/26/24 18:53 MCH 30.2 pg (27-33) 07/26/24 18:53 MCHC 33.3 g/dL (30-55) 07/26/24 18:53 RDW 12.6 % (12.1-15.1) 07/26/24 18:53 Plt Count 197 10^3/cmm (157-399) 07/26/24 18:53 MPV 10.0 fL (7.4-10.4) 07/26/24 18:53 Neut % (Auto) 53.2 % 07/26/24 18:53 Lymph % (Auto) 33.1 % 07/26/24 18:53 [place] % (Auto) 9.4 % 07/26/24 18:53 Eos % (Auto) 3.4 % 07/26/24 18:53 Baso % (Auto) 0.7 % 07/26/24 18:53 Neut # (Auto) 2.99 10^3/uL (1.8-7.7) 07/26/24 18:53 Lymph # (Auto) 1.9 10^3/uL (0.8-4.8) 07/26/24 18:53 [place] # (Auto) 0.5 10^3/uL (0.2-0.9) 07/26/24 18:53 Eos # (Auto) 0.2 10^3/uL (0.0-0.8) 07/26/24 18:53 Baso # (Auto) 0.0 10^3/uL (0.0-0.1) 07/26/24 18:53 Nucleated RBC % (auto) 0 % 07/26/24 18:53 Nucleated RBCs # 0.0 /100WBC 07/26/24 18:53 Sodium 137 mmol/L (136-145) 07/26/24 18:53 Potassium 3.8 mmol/L (3.5-5.1) 07/26/24 18:53 Chloride 103 mmol/L (98-107) 07/26/24 18:53 Carbon Dioxide 27 mmol/L (22-29) 07/26/24 18:53 Anion Gap 10.8 (5-19) 07/26/24 18:53 BUN 12 mg/dL (6-20) 07/26/24 18:53 Creatinine 1.1 mg/dL (0.7-1.2) 07/26/24 18:53 GFR Calculation 72.1 mL/min (90-130) L 07/26/24 18:53 Glucose 91 mg/dL (65-115) 07/26/24 18:53 Calculated Osmolality 283 mOsm/kg (285-295) L 07/26/24 18:53 Calcium 8.4 mg/dL (8.5-10.5) L 07/26/24 18:53 Total Bilirubin 0.5 mg/dL (0.15-1.2) 07/26/24 18:53 AST 13 U/L (0-40) 07/26/24 18:53 ALT 8 U/L (0-41) 07/26/24 18:53 Alkaline Phosphatase 63 U/L (40-130) 07/26/24 18:53 Total Protein 6.8 g/dL (6.6-8.7) 07/26/24 18:53 Albumin 3.6 g/dL (3.5-5.2) 07/26/24 18:53 Globulin 3.2 g/dL (1.3-4.6) 07/26/24 18:53 Lipase 26 U/L (13-60) 07/26/24 18:53 All radiology interpretation(s) finalized by discharge Discharge Plan Discharge Patient Disposition: Home Clinical Impression: Colostomy in place, Colostomy hernia, Diarrhea, Cholelithiasis NOS Condition: Stable Prescriptions: New dicyclomine 20 mg tablet 20 mg PO TID PRN (Reason: Abdominal cramping) Qty: 20 0RF No Action mupirocin 2 % ointment 1 applic topical TID Qty: 15 0RF sulfamethoxazole-trimethoprim [Bactrim DS] 800-160 mg tablet 1 tab PO Q12H Qty: 14 0RF lisinopril 20 mg tablet 20 mg PO DAILY Qty: 30 0RF amlodipine 5 mg tablet 5 mg PO DAILY Qty: 30 0RF Discharge Orders: Discharge ED (Routine); Ordered 07/26/24 Ordered By: Syeda House Referrals: Ze Neumann MD [Primary Care Provider] - Discharge Diet: Low Fat and GI Soft Discharge Activity: Resume usual activity Patient Instructions: Dicyclomine (By mouth), Biliary Colic (ED), Gallstones (ED), Gastroenteritis (ED), Pain Management Activity Restrictions/Additional Instructions: As discussed you do have gallstones without an infected gallbladder or obstruction. He could also be suffering from gastroenteritis. No evidence of bowel obstruction or inflammatory bowel disease. Bentyl as an antispasmodic that may help with abdominal cramping. I want you to follow-up this week with your primary care doctor to discuss further. If your symptoms persist you might need to see a molded goods spot picker. Additional tests that may be warranted include a HIDA scan and a renal ultrasound. The HIDA scan is to look at the functioning of the gallbladder. An ultrasound might also be done for the gallbladder. The renal ultrasound is due to hypodensities noted on your right kidney. The size or structure has changed mildly since 2021 CT. This needs to be evaluated further. Please return to the emergency department for new, concerning, worsening symptoms Coding Level of Care Code ED [employer] Operator for Bonnie Merlos
[2024-07-26] MEDS: iohexol 350 mg/mL 500 mL Btl (per mL) IV (18:40)
[2024-07-26 18:59] LABS: Basophils % 0.7 %; Eosinophils # 0.2 10^3/uL (0.0-0.8); Eosinophils % 3.4 %; Hematocrit 44.2 % (37-53); Lymphocytes # 1.9 10^3/uL (0.8-4.8); Lymphocytes % 33.1 %; Mean Corpuscular HGB Conc 33.3 g/dL (30-55); Mean Corpuscular Hemoglobin 30.2 pg (27-33); Mean Corpuscular Volume 90.8 fl (82-101); Monocytes # 0.5 10^3/uL (0.2-0.9); Monocytes % 9.4 %; Neutrophils # 2.99 10^3/uL (1.8-7.7); Neutrophils % 53.2 %; Nucleated Red Blood Cells % 0 %; Platelet Count 197 10^3/cmm (157-399); Red Blood Count 4.87 10^6/uL (3.85-5.65); Red Cell Distribution Width 12.6 % (12.1-15.1); White Blood Count 5.62 10^3/uL (3.29-11.43)
[2024-07-26 19:20] LABS: Alanine Aminotransferase 8 U/L (0-41); Albumin Level 3.6 g/dL (3.5-5.2); Alkaline Phosphatase 63 U/L (40-130); Anion Gap 10.8 (5-19); Aspartate Amino Transferase 13 U/L (0-40); Blood Urea Nitrogen 12 mg/dL (6-20); Calcium 8.4 mg/dL (8.5-10.5); Carbon Dioxide 27 mmol/L (22-29); Chloride 103 mmol/L (98-107); Creatinine Clr Calc Pharmacy 110.1272; Globulin 3.2 g/dL (1.3-4.6); Glomerular Filtration Rate 72.1 mL/min (90-130); Glucose 91 mg/dL (65-115); Lipase 26 U/L (13-60); Osmolality Calculated 283 mOsm/kg (285-295); Potassium 3.8 mmol/L (3.5-5.1); Sodium 137 mmol/L (136-145); Total Bilirubin 0.5 mg/dL (0.15-1.2); Total Protein 6.8 g/dL (6.6-8.7)
[2024-07-26] MEDS: dicyclomine 20 mg Tablet PO (20:18)
[2024-07-26 20:32] VITALS: BP 171/113; PULSE 63; RESP 16; O2SAT 98
== END 2024-07-26 20:34 | disposition home or self-care (01) ==
PROVIDERS: Emergency Medicine; Emergency Provider Nurse Practitioner; PCP Family Medicine
DX: K80.20 Calculus of gallbladder without cholecystitis without obstruction (principal); K94.09 Other complications of colostomy; R19.7 Diarrhea, unspecified; N28.1 Cyst of kidney, acquired; Z93.3 Colostomy status
CPT/HCPCS: 36415; 74177; 80053; 83690; 85025; 99285